=== PATIENT | male | born 1975 | race American Indian/Alaskan Native ===

== ENCOUNTER 2019-07-04 09:24 | Inpatient (IN) | payer OTHER ==
[2019-07-04] MEDS ORDERED: ASPIRIN PO ONE (10:25)
[2019-07-04 10:52] LABS: Basophils # (Auto) 0.1 K/mm3 (0.0-0.1); Basophils % (Auto) 0.7 % (0.0-1.8); Eosinophils # (Auto) 0.1 K/mm3 (0.0-0.4); Eosinophils % (Auto) 1.1 % (0.0-4.3); Hematocrit 42.6 % (35.5-45.6); Hemoglobin 13.8 gm/dl (11.8-15.2); Lymphocytes # (Auto) 1.5 K/mm3 (1.2-5.4); Lymphocytes % (Auto) 19.2 % (13.4-35.0); Mean Corpuscular HGB Conc 32 % (32-34); Mean Corpuscular Volume 83 fl (84-94); Monocytes # (Auto) 0.6 K/mm3 (0.0-0.8); Monocytes % (Auto) 7.6 % (0.0-7.3); Platelet Count 337 K/mm3 (140-440); Red Blood Count 5.12 M/mm3 (3.65-5.03); Red Cell Distribution Width 16.5 % (13.2-15.2)
--- NOTE | 2019-07-04 11:01 | XRay Report ---
CHEST 1 VIEW INDICATION: Chest Pain. COMPARISON: None FINDINGS: Support devices: None. Heart: Mild cardiomegaly Lungs/Pleura: Moderate pulmonary congestion. No infiltrate, large pleural effusion or pneumothorax. Additional findings: None. IMPRESSION: Cardiomegaly and pulmonary venous congestion. Signer Name: Eldon Avina Jr, MD Signed: 07/04/2019 10:57 AM Workstation Name: [id number]
--- NOTE | 2019-07-04 11:02 | Emergency Department Report ---
ED Shortness of Breath HPI - General Chief Complaint: Chest Pain Stated Complaint: CHEST TIGHT/SOB Time Seen by Provider: 07/04/19 10:30 Source: patient Mode of arrival: Ambulatory Limitations: No Limitations - History of Present Illness Initial Comments: 43-year-old male patient with history of diabetes presents with complaints of shortness of breath 2 weeks worsening this morning with chest tightness. He denies history of DVT/PE/CA/CVA, recent long travel, family history of heart disease. He admits to bilateral lower leg swelling and swelling in his abdomen. Denies history of heart failure. States pain is a 7 out of 10 in severity and feels like his chest is very tight. + Smoker, denies COPD or asthma history MD Complaint: shortness of breath -: Gradual Pain Scale: 7 Quality: other Improves With: oxygen Worsens With: lying flat Associated Symptoms: chest pain - Related Data Home Medications Medication Instructions Recorded Confirmed Last Taken No Known Home Medications [No 07/04/19 07/04/19 Unknown Reported Home Medications] Allergies Allergy/AdvReac Type Severity Reaction Status Date / Time No Known Allergies Allergy Verified 07/04/19 10:35 ED Review of Systems ROS: Stated complaint: CHEST TIGHT/SOB Other details as noted in HPI Constitutional: denies: chills, diaphoresis, fever ENT: denies: throat pain Respiratory: shortness of breath, SOB with exertion, SOB at rest. denies: cough, wheezing Endocrine: denies: excessive sweating Gastrointestinal: denies: abdominal pain, nausea, vomiting, diarrhea, constipation Musculoskeletal: as per HPI Skin: lesions, change in color. denies: rash Neurological: denies: headache, weakness, numbness, paresthesias Psychiatric: denies: anxiety, depression Hematological/Lymphatic: denies: easy bleeding, easy bruising ED Past Medical Hx - Past Medical History Previous Medical History?: Yes Hx Diabetes: Yes - Surgical History Past Surgical History?: Yes Additional Surgical History: Left hip surgery - Social History Smoking Status: Current Every Day Smoker Substance Use Type: Marijuana, Methamphetamines - Medications Home Medications: Home Medications Medication Instructions Recorded Confirmed Last Taken Type No Known Home Medications [No 07/04/19 07/04/19 Unknown History Reported Home Medications] ED Physical Exam - General Limitations: No Limitations General appearance: alert, in no apparent distress - Head Head exam: Present: atraumatic, normocephalic - Eye Eye exam: Present: normal appearance - ENT ENT exam: Present: mucous membranes moist - Neck Neck exam: Present: normal inspection - Respiratory Respiratory exam: Present: decreased breath sounds. Absent: respiratory distress, wheezes, rales, rhonchi - Cardiovascular Cardiovascular Exam: Present: normal rhythm, tachycardia, normal heart sounds. Absent: systolic murmur, diastolic murmur, rubs, gallop - GI/Abdominal GI/Abdominal exam: Present: soft, distended, normal bowel sounds. Absent: tenderness, guarding, rebound, rigid - Rectal Rectal exam: Present: deferred - Extremities Exam Extremities exam: Present: pedal edema (3+ pitting edema bilaterally in LEs with superficial lesions noted to LLE), calf tenderness - Back Exam Back exam: Present: full ROM - Neurological Exam Neurological exam: Present: alert, oriented X3 - Psychiatric Psychiatric exam: Present: normal affect, normal mood - Skin Skin exam: Present: warm, dry, intact, normal color. Absent: rash ED Course Vital Signs 07/04/19 07/04/19 07/04/19 09:28 10:50 11:14 Temperature 97.6 F 98.1 F Pulse Rate 118 H 115 H Respiratory 19 19 20 Rate Blood Pressure 150/105 Blood Pressure 147/114 [Left] O2 Sat by Pulse 97 100 96 Oximetry 07/04/19 07/04/19 07/04/19 12:30 14:22 15:35 Temperature 98.1 F Pulse Rate 113 H Respiratory 16 18 Rate Blood Pressure 152/101 Blood Pressure 149/113 138/99 [Left] O2 Sat by Pulse 100 Oximetry - Reevaluation(s) Reevaluation #1: 07/04/19 11:03 Distention noted on exam with mild tachycardia, heart rate around 115 bpm. CTA chest to BNP, and venous ultrasound added. 07/04/19 11:04 CBC without acute findings. Reevaluation #2: 07/04/19 12:30 Ultrasound negative for DVT bilaterally in lower extremities Reevaluation #3: 07/04/19 13:[address] Esparza, radiologiststates CTA of chest shows a right middle lobe embolus and CHF. ED Medical Decision Making - Lab Data Result diagrams: 07/05/19 06:07 07/05/19 06:07 Lab Results 07/04/19 07/04/19 07/04/19 Range/Units 10:37 10:37 10:37 WBC 7.9 (4.5-11.0) K/mm3 RBC 5.12 H (3.65-5.03) M/mm3 Hgb 13.8 (11.8-15.2) gm/dl Hct 42.6 (35.5-45.6) % MCV 83 L (84-94) fl MCH 27 L (28-32) pg MCHC 32 (32-34) % RDW 16.5 H (13.2-15.2) % Plt Count 337 (140-440) K/mm3 Lymph % (Auto) 19.2 (13.4-35.0) % [place] % (Auto) 7.6 H (0.0-7.3) % Eos % (Auto) 1.1 (0.0-4.3) % Baso % (Auto) 0.7 (0.0-1.8) % Lymph # 1.5 (1.2-5.4) K/mm3 [place] # 0.6 (0.0-0.8) K/mm3 Eos # 0.1 (0.0-0.4) K/mm3 Baso # 0.1 (0.0-0.1) K/mm3 Seg Neutrophils % 71.4 H (40.0-70.0) % Seg Neutrophils # 5.6 (1.8-7.7) K/mm3 Sodium 139 (137-145) mmol/L Potassium 4.1 (3.6-5.0) mmol/L Chloride 103.9 (98-107) mmol/L Carbon Dioxide 21 L (22-30) mmol/L Anion Gap 18 mmol/L BUN 14 (9-20) mg/dL Creatinine 0.8 (0.8-1.5) mg/dL Estimated GFR > 60 ml/min BUN/Creatinine Ratio 18 % Glucose 165 H (75-100) mg/dL Calcium 8.1 L (8.4-10.2) mg/dL Total Bilirubin 0.60 (0.1-1.2) mg/dL Direct Bilirubin 0.2 (0-0.2) mg/dL Indirect Bilirubin 0.4 mg/dL AST 18 (5-40) units/L ALT 20 (7-56) units/L Alkaline Phosphatase 90 (35-129) units/L Troponin T < 0.010 (0.00-0.029) ng/mL NT-Pro-B Natriuret Pep 2361 H (0-450) pg/mL Total Protein 6.9 (6.3-8.2) g/dL Albumin 3.7 L (3.9-5) g/dL Albumin/Globulin Ratio 1.2 % - Radiology Data Radiology results: report reviewed Bilateral Doppler US of LEs negative for DVT CHEST 1 VIEW INDICATION: Chest Pain. COMPARISON: None FINDINGS: Support devices: None. Heart: Mild cardiomegaly Lungs/Pleura: Moderate pulmonary congestion. No infiltrate, large pleural effusion or pneumothorax. Additional findings: None. IMPRESSION: Cardiomegaly and pulmonary venous congestion. CT angio chest INDICATION / CLINICAL INFORMATION: chest pain ,SOB, tachycardia. TECHNIQUE: Axial CT images were obtained after injection of Omnipaque 350, 100 cc IV contrast using CTA protocol. 3 plane MIP / 3D reconstructions were produced. All CT scans at this location are performed using CT dose reduction for ALARA by means of automated exposure control. COMPARISON: Chest x-ray earlier the same day. FINDINGS: Evaluation is limited by significant respiratory artifact. The lungs contain small/moderate effusions and moderate bilateral edema. A few small areas of slightly more localized parenchymal change is noted. Negative for mediastinal mass or adenopathy. There is reflux into the IVC and hepatic veins typical of increased central venous pressure. Negative for large central pulmonary embolus. The smaller pulmonary arteries are not well evaluated. A localized embolus is seen at the right middle lobe medially (series #3, images [id number]). A pericardial effusion is small. IMPRESSION: 1. Small right middle lobe pulmonary embolus. Findings detailed limited by respiratory motion. 2. Changes of congestive failure including pleural fluid and edema. 3. Small pericardial effusion. 4. Increased central venous pressure with reflux into the IVC and hepatic veins. - Medical Decision Making Chin here with shortness of breath and chest pain. Workup shows new onset heart failure with right middle lobe embolus. Discussed patient with Dr. Cooper, patient to be admitted for further treatment and evaluation. Critical care attestation.: If time is entered above; I have spent that time in minutes in the direct care of this critically ill patient, excluding procedure time. ED Disposition Clinical Impression: New onset of congestive heart failure Pulmonary embolism Qualifiers: Pulmonary embolism type: single subsegmental (without acute cor pulmonale) Qualified Code(s): I26.93 - Single subsegmental pulmonary embolism without acute cor pulmonale Disposition: DC-09 OP ADMIT IP TO THIS HOSP Is pt being admited?: Yes Condition: Stable
[2019-07-04 11:13] LABS: BUN/Creatinine Ratio 18; Blood Urea Nitrogen 14 mg/dL (9-20); Calcium 8.1 mg/dL (8.4-10.2); Hemolysis Index 7
[2019-07-04 11:40] LABS: Albumin 3.7 g/dL (3.9-5); Bilirubin,Direct 0.2 mg/dL (0-0.2)
--- NOTE | 2019-07-04 12:18 | Vascular Lab Report ---
DUPLEX DOPPLER LOWER EXTREMITY VEINS, BILATERAL INDICATION: Bilateral lower extremity pain and swelling for 2 days. TECHNIQUE: Duplex doppler imaging was performed through the veins of both lower extremities using ve nous compression and other maneuvers. COMPARISON: No relevant prior imaging study available. FINDINGS: Right Common femoral vein: Negative. Right Superficial femoral vein: Negative. Right Popliteal vein: Negative. Right Calf veins: Negative. Left Common femoral vein: Negative. Left Superficial femoral vein: Negative. Left Popliteal vein: Negative. Left Calf veins: Negative. Additional findings: None.. IMPRESSION: No sonographic evidence for DVT in either lower extremity. Signer Name: Eldon Avina Jr, MD Signed: 07/04/2019 12:14 PM Workstation Name: [id number]
--- NOTE | 2019-07-04 13:45 | Cat Scan Report ---
CT angio chest INDICATION / CLINICAL INFORMATION: chest pain ,SOB, tachycardia. TECHNIQUE: Axial CT images were obtained after injection of Omnipaque 350, 100 cc IV contrast using CTA protocol . 3 plane MIP / 3D reconstructions were produced. All CT scans at this location are performed using C T dose reduction for ALARA by means of automated exposure control. COMPARISON: Chest x-ray earlier the same day. FINDINGS: Evaluation is limited by significant respiratory artifact. The lungs contain small/moderate effusions and moderate bilateral edema. A few small areas of slightly more localized parenchymal change is not ed. Negative for mediastinal mass or adenopathy. There is reflux into the IVC and hepatic veins typical o f increased central venous pressure. Negative for large central pulmonary embolus. The smaller pulmonary arteries are not well evaluated. A localized embolus is seen at the right middle lobe medially (series #3, images [id number]). A pericardial effusion is small. IMPRESSION: 1. Small right middle lobe pulmonary embolus. Findings detailed limited by respiratory motion. 2. Changes of congestive failure including pleural fluid and edema. 3. Small pericardial effusion. 4. Increased central venous pressure with reflux into the IVC and hepatic veins. CRITICAL RESULT: Time of Discovery: 12:35 PM Time of Communication: 12:38 PM Licensed Practitioner Receiving Report: December [place] Read Back Performed: Yes. Signer Name: Baldev Esparza MD Signed: 07/04/2019 1:41 PM Workstation Name: [id number]
[2019-07-04] MEDS ORDERED: ZOFRAN IV PRN (14:02)
[2019-07-04] MEDS ORDERED: SODIUM CHLORIDE FLUSH SYRINGE 10 ML IV PRN (14:02)
--- NOTE | 2019-07-04 14:05 | History and Physical Report ---
History of Present Illness Chief complaint: My chest feels tight, and my ankles are swollen History of present illness: 43 YO Male with Obesity, Polysubstance Abuse presents to ED for evaluation. Pt states that he has experienced shortness of breath over the past 2 weeks, with progressively worsening symptoms over the past 3 days. Pt also reports "chest tightness" and "feels like I cant catch my breath". Pt acknowledges decreased exercise tolerance, chest discomfort with deep breathing, Orthopnea/PND, and subjective weight gain over the past 1 week. Pt transported to [facility] via private vehicle. Pt seen and evaluated in ED and found to have symptoms consistent with CHF Decompensation, New Onset, Acute Respiratory Failure, Obesity Hypoventilation, as well as RML Pulmonary Embolism. Pt initiated on CHF protocol in ED as well as therapeutic anticoagulation. Cardiology consulted in ED. No prior admission for review. No medication listed for reconciliation at time of admission. Pt is alert and responsive and is able to protect his airway. Past History Past Medical History: other (see hpi) Past Surgical History: Other (Left hip surgery) Social history: single, smoking, other (polysubstance abuse) Family history: no significant family history (reviewed) Medications and Allergies Allergies Allergy/AdvReac Type Severity Reaction Status Date / Time No Known Allergies Allergy Verified 07/04/19 10:35 Active Meds: Active Medications Acetaminophen (Tylenol) 650 mg PO Q4H PRN PRN Reason: Pain MILD(1-3)/Fever >100.5/PEDROZA Apixaban (Eliquis) 10 mg PO Q12HR MARLENA; Protocol Ondansetron HCl (Zofran) 4 mg IV Q8H PRN PRN Reason: Nausea And Vomiting Sodium Chloride (Sodium Chloride Flush Syringe 10 Ml) 10 ml IV BID MARLENA Sodium Chloride (Sodium Chloride Flush Syringe 10 Ml) 10 ml IV PRN PRN PRN Reason: LINE FLUSH Review of Systems Constitutional: no weight loss, no weight gain, no fever, no chills Ears, nose, mouth and throat: no ear pain, no ear discharge, no tinnitis, no decreased hearing, no nose pain, no nasal congestion Cardiovascular: orthopnea, edema, shortness of breath, dyspnea on exertion, paroxysmal nocturnal dyspnea, decreased exercise tolerance, no rapid/irregular heart beat Respiratory: no cough, no cough with sputum, no excessive sputum, no hemoptysis Gastrointestinal: no nausea, no vomiting, no diarrhea, no constipation Genitourinary Male: no hematuria, no flank pain, no discharge, no urinary frequency, no urinary hesitancy Rectal: no pain, no incontinence, no bleeding Musculoskeletal: no neck stiffness, no neck pain, no shooting arm pain, no arm numbness/tingling Integumentary: no rash, no pruritis, no redness, no sores, no wounds Neurological: no transient paralysis, no paralysis, no weakness, no parathesias, no numbness, no tingling Psychiatric: no anxiety, no memory loss, no change in sleep habits, no sleep disturbances, no insomnia, no hypersomnia Endocrine: no cold intolerance, no heat intolerance, no polyphagia, no excessive thirst, no polydipsia, no polyuria Hematologic/Lymphatic: no easy bruising, no easy bleeding, no lymphadenopathy, no lymphedema Allergic/Immunologic: no urticaria, no allergic rhinitis, no persistent infections, no anaphylaxis Exam - Constitutional Vitals: Temp Pulse Resp BP Pulse Ox 98.1 F 115 H 20 149/113 96 07/04/19 10:50 07/04/19 10:50 07/04/19 11:14 07/04/19 12:30 07/04/19 11:14 General appearance: Present: mild distress - EENT Eyes: Present: PERRL ENT: hearing intact, clear oral mucosa - Neck Neck: Present: supple, normal ROM - Respiratory Respiratory effort: normal Respiratory: bilateral: diminished - Cardiovascular Heart Sounds: Present: S1 & S2. Absent: rub, click - Extremities Extremities: pulses symmetrical Extremity abnormal: edema Peripheral Pulses: within normal limits - Abdominal General gastrointestinal: Present: soft, non-tender, non-distended, normal bowel sounds Male genitourinary: Present: normal - Integumentary Integumentary: Present: clear, warm, dry - Musculoskeletal Musculoskeletal: generalized weakness - Psychiatric Psychiatric: appropriate mood/affect, intact judgment & insight - Neurologic Neurologic: CNII-XII intact, moves all extremities, no gait normal Results - Labs CBC & Chem 7: 07/04/19 10:37 07/04/19 10:37 Labs: Abnormal lab results 07/04/19 07/04/19 07/04/19 Range/Units 10:37 10:37 10:37 RBC 5.12 H (3.65-5.03) M/mm3 MCV 83 L (84-94) fl MCH 27 L (28-32) pg RDW 16.5 H (13.2-15.2) % [place] % (Auto) 7.6 H (0.0-7.3) % Seg Neutrophils % 71.4 H (40.0-70.0) % Carbon Dioxide 21 L (22-30) mmol/L Glucose 165 H (75-100) mg/dL Calcium 8.1 L (8.4-10.2) mg/dL NT-Pro-B Natriuret Pep 2361 H (0-450) pg/mL Albumin 3.7 L (3.9-5) g/dL Assessment and Plan - Patient Problems (1) CHF (congestive heart failure) Current Visit: Yes Status: Acute Qualifiers: Heart failure chronicity: acute Plan to address problem: Admit to telemetry, Echo, cardiology consulted, strict I/O, daily weight, bnp, d dimer, supplemental oxygen, pulse oximetry, chest x ray, diuresis, afterload reduction, thyroid panel, magnesium level (2) Respiratory failure Current Visit: Yes Status: Acute Qualifiers: Chronicity: acute on chronic Plan to address problem: Supplemental oxygen, chest x ray, CTA chest, pulse oximetry, NIPPV as clinically indicated (3) Obesity hypoventilation syndrome Current Visit: Yes Status: Acute Plan to address problem: supplemental oxygen, nebulizer therapy, pulmonary toilet, NIPPV as clinically indicated. balanced diet, increased physical activity at discharge. (4) Pulmonary embolism on right Current Visit: Yes Status: Acute Plan to address problem: Therapeutic anticoagulation, hypercoagulabe profile, supportive care. (5) Nicotine dependence Current Visit: Yes Status: Acute Qualifiers: Substance use status: in withdrawal Plan to address problem: smoking cessation +10min, supportive care. (6) Polysubstance abuse Current Visit: Yes Status: Acute Plan to address problem: Outpatient F/U care, (7) DVT prophylaxis Current Visit: Yes Status: Acute Plan to address problem: SCD to BLE while in bed, continue therapeutic anticoagulation.
[2019-07-04] MEDS: ELIQUIS PO SCH ×2 (14:21→21:42)
[2019-07-04] MEDS: LASIX IV SCH (17:21)
[2019-07-04] MEDS ORDERED: LASIX PO SCH (18:00)
[2019-07-04 18:06] LABS: Free T4 (Free Thyroxine) 1.21 ng/dL (0.76-1.46)
[2019-07-04 18:09] LABS: Benzodiazepines Screen,Urine PRESUMPTIVE NEGATIVE; Cannabinoid Screen,Urine PRESUMPTIVE NEGATIVE; Cocaine Screen,Urine PRESUMPTIVE NEGATIVE; Methadone Screen,Urine PRESUMPTIVE NEGATIVE; Opiate Screen,Urine PRESUMPTIVE NEGATIVE
[2019-07-04 18:38] LABS: Amphetamine Screen,Urine PRESUMPTIVE POSITIVE
[2019-07-04 20:20] LABS: INR 1.26 (0.87-1.13)
[2019-07-04 20:21] LABS: Partial Thromboplastin Time 29.8 Sec. (24.2-36.6)
[2019-07-04] MEDS: SODIUM CHLORIDE FLUSH SYRINGE 10 ML IV SCH (21:42)
[2019-07-05] MEDS: LASIX IV SCH ×2 (05:51→17:42)
[2019-07-05 06:25] LABS: Basophils # (Auto) 0.1 K/mm3 (0.0-0.1); Basophils % (Auto) 1.1 % (0.0-1.8); Eosinophils # (Auto) 0.2 K/mm3 (0.0-0.4); Eosinophils % (Auto) 2.7 % (0.0-4.3); Hematocrit 42.6 % (35.5-45.6); Hemoglobin 13.8 gm/dl (11.8-15.2); Lymphocytes # (Auto) 1.5 K/mm3 (1.2-5.4); Lymphocytes % (Auto) 19.8 % (13.4-35.0); Mean Corpuscular HGB Conc 32 % (32-34); Mean Corpuscular Volume 83 fl (84-94); Monocytes # (Auto) 0.6 K/mm3 (0.0-0.8); Monocytes % (Auto) 8.7 % (0.0-7.3); Platelet Count 339 K/mm3 (140-440); Red Blood Count 5.15 M/mm3 (3.65-5.03); Red Cell Distribution Width 16.5 % (13.2-15.2)
[2019-07-05 06:51] LABS: Alanine Aminotransferase 19 units/L (7-56); Albumin 3.6 g/dL (3.9-5); BUN/Creatinine Ratio 18; Blood Urea Nitrogen 14 mg/dL (9-20); Calcium 7.8 mg/dL (8.4-10.2); Hemolysis Index 3
[2019-07-05] MEDS: SODIUM CHLORIDE FLUSH SYRINGE 10 ML IV SCH ×2 (09:09→22:31)
[2019-07-05] MEDS: ELIQUIS PO SCH (09:09)
--- NOTE | 2019-07-05 12:29 | Progress Note ---
Assessment and Plan Assessment and plan: Acute Congestive heart failure Admited to telemetry, Echo, cardiology consulted, strict I/O, daily weight, bnp, d dimer, supplemental oxygen, pulse oximetry, chest x ray, diuresis, afterload reduction, thyroid panel, magnesium level Acute Respiratory failure Supplemental oxygen, chest x ray, CTA chest, pulse oximetry, NIPPV as clinically indicated Obesity hypoventilation syndrome supplemental oxygen, nebulizer therapy, pulmonary toilet, NIPPV as clinically indicated. balanced diet, increased physical activity at discharge. Pulmonary embolism on right Therapeutic anticoagulation, hypercoagulabe profile, supportive care. Started on Eliquis consult Hematology Nicotine dependence smoking cessation +10min, supportive care. Polysubstance abuse Outpatient F/U care, DVT prophylaxis SCD to BLE while in bed, continue therapeutic anticoagulation. History Interval history: Chest pain shortness of breath Hospitalist Physical - Physical exam Narrative exam: Gen: Not in acute distress, lying in bed, HEENT: Normocephalic, atraumatic Neck: supple, no JVD Heart: S1 and S2 reg, no murmurs, rubs or gallop Lungs: Clear to auscultation, no rhonchi, no wheeze Abd: soft, non tender, non distended, normal BS, Ext: Bilateral lower ext edema, ulcer left leg, no clubbing, no cyanosis Neuro: Awake, alert, oriented X 3, no focal neurological signs - Constitutional Vitals: Temp Pulse Resp BP Pulse Ox 98.1 F 109 H 18 133/89 97 07/05/19 11:17 07/05/19 11:17 07/05/19 11:17 07/05/19 11:17 07/05/19 11:17 Results - Labs CBC & Chem 7: 07/05/19 06:07 07/05/19 06:07 Labs: Laboratory Last Values WBC 7.4 K/mm3 (4.5-11.0) 07/05/19 06:07 RBC 5.15 M/mm3 (3.65-5.03) H 07/05/19 06:07 Hgb 13.8 gm/dl (11.8-15.2) 07/05/19 06:07 Hct 42.6 % (35.5-45.6) 07/05/19 06:07 MCV 83 fl (84-94) L 07/05/19 06:07 MCH 27 pg (28-32) L 07/05/19 06:07 MCHC 32 % (32-34) 07/05/19 06:07 RDW 16.5 % (13.2-15.2) H 07/05/19 06:07 Plt Count 339 K/mm3 (140-440) 07/05/19 06:07 Lymph % (Auto) 19.8 % (13.4-35.0) 07/05/19 06:07 [place] % (Auto) 8.7 % (0.0-7.3) H 07/05/19 06:07 Eos % (Auto) 2.7 % (0.0-4.3) 07/05/19 06:07 Baso % (Auto) 1.1 % (0.0-1.8) 07/05/19 06:07 Lymph # 1.5 K/mm3 (1.2-5.4) 07/05/19 06:07 [place] # 0.6 K/mm3 (0.0-0.8) 07/05/19 06:07 Eos # 0.2 K/mm3 (0.0-0.4) 07/05/19 06:07 Baso # 0.1 K/mm3 (0.0-0.1) 07/05/19 06:07 Seg Neutrophils % 67.7 % (40.0-70.0) 07/05/19 06:07 Seg Neutrophils # 5.0 K/mm3 (1.8-7.7) 07/05/19 06:07 PT 15.5 Sec. (12.2-14.9) H 07/04/19 16:44 INR 1.26 (0.87-1.13) H 07/04/19 16:44 APTT 29.8 Sec. (24.2-36.6) 07/04/19 16:44 POC ABG pH 7.424 (7.35-7.45) 07/04/19 15:02 POC ABG pCO2 40.5 (35-45) 07/04/19 15:02 POC ABG pO2 128 (80-105) H 07/04/19 15:02 POC ABG HCO3 26.5 (22-26 mml/L) 07/04/19 15:02 POC ABG Total CO2 28 (23-27mmol/L) 07/04/19 15:02 POC ABG O2 Sat 99 07/04/19 15:02 POC ABG Base Excess 2 ((-2) - (+3)mmol/L) 07/04/19 15:02 FiO2 36 % 07/04/19 15:02 Sodium 141 mmol/L (137-145) 07/05/19 06:07 Potassium 4.1 mmol/L (3.6-5.0) 07/05/19 06:07 Chloride 102.4 mmol/L (98-107) 07/05/19 06:07 Carbon Dioxide 24 mmol/L (22-30) 07/05/19 06:07 Anion Gap 19 mmol/L 07/05/19 06:07 BUN 14 mg/dL (9-20) 07/05/19 06:07 Creatinine 0.8 mg/dL (0.8-1.5) 07/05/19 06:07 Estimated GFR > 60 ml/min 07/05/19 06:07 BUN/Creatinine Ratio 18 % 07/05/19 06:07 Glucose 206 mg/dL (75-100) H 07/05/19 06:07 Calcium 7.8 mg/dL (8.4-10.2) L 07/05/19 06:07 Magnesium 2.30 mg/dL (1.7-2.3) 07/04/19 16:44 Total Bilirubin 0.60 mg/dL (0.1-1.2) 07/05/19 06:07 Direct Bilirubin 0.2 mg/dL (0-0.2) 07/04/19 10:37 Indirect Bilirubin 0.4 mg/dL 07/04/19 10:37 AST 15 units/L (5-40) 07/05/19 06:07 ALT 19 units/L (7-56) 07/05/19 06:07 Alkaline Phosphatase 88 units/L (35-129) 07/05/19 06:07 Troponin T < 0.010 ng/mL (0.00-0.029) 07/04/19 16:44 NT-Pro-B Natriuret Pep 2361 pg/mL (0-450) H 07/04/19 10:37 Total Protein 6.7 g/dL (6.3-8.2) 07/05/19 06:07 Albumin 3.6 g/dL (3.9-5) L 07/05/19 06:07 Albumin/Globulin Ratio 1.2 % 07/05/19 06:07 TSH 2.270 mlU/mL (0.270-4.200) 07/04/19 16:44 Free T4 1.21 ng/dL (0.76-1.46) 07/04/19 16:44 Urine Opiates Screen Presumptive negative 07/04/19 17:35 Urine Methadone Screen Presumptive negative 07/04/19 17:35 Ur Barbiturates Screen Presumptive negative 07/04/19 17:35 Ur Phencyclidine Scrn Presumptive negative 07/04/19 17:35 Ur Amphetamines Screen Presumptive positive 07/04/19 17:35 U Benzodiazepines Scrn Presumptive negative 07/04/19 17:35 Urine Cocaine Screen Presumptive negative 07/04/19 17:35 U Marijuana (THC) Screen Presumptive negative 07/04/19 17:35 Drugs of Abuse Note Disclamer 07/04/19 17:35 Active Medications - Current Medications Current Medications: Generic Name Dose Route Start Last Admin Trade Name Freq PRN Reason Stop Dose Admin Acetaminophen 650 mg 07/04/19 14:02 Tylenol PO Q4H PRN Pain MILD(1-3)/Fever >100.5/PEDROZA Apixaban 10 mg 07/04/19 14:04 07/05/19 09:09 Eliquis PO 07/10/19 22:01 10 mg Q12HR MARLENA Administration Protocol Apixaban 5 mg 07/11/19 10:00 Eliquis PO Q12HR MARLENA Protocol Furosemide 40 mg 07/04/19 18:00 07/05/19 05:51 Lasix IV 40 mg 0600,1800 MARLENA Administration Ondansetron HCl 4 mg 07/04/19 14:02 Zofran IV Q8H PRN Nausea And Vomiting Sodium Chloride 10 ml 07/04/19 22:00 07/05/19 09:09 Sodium Chloride Flush Syringe 10 Ml IV 10 ml BID MARLENA Administration Sodium Chloride 10 ml 07/04/19 14:02 07/05/19 05:53 Sodium Chloride Flush Syringe 10 Ml IV 10 ml PRN PRN Administration LINE FLUSH
--- NOTE | 2019-07-05 12:43 | Consultation ---
History of Present Illness Consult date: 07/05/19 Requesting physician: ALEXANDRA HARDEN Consult reason: congestive heart failure, other (PE) History of present illness: The pt is a 43 YO male with a history of HTN, diabetes (reportedly diet controlled), obesity, polysubstance abuse, current tobacco smoker, currently homeless. He is previously unknown to our practice. He presented with c/o progressively worsening SOB, WINTER and BLE swelling for the past 2 weeks. Pt also reports "chest tightness" with exertion. Pt denies any palpitations, n/v, diaphoresis, dizziness or syncope. He denies any known prior cardiac issues. Chest CTA shows small right middle lobe PE, small/mod effusions and mod bilateral pulmonary edema. Echo shows EF 10-15%, abnormal diastolic function, moderate pericardial effusion with no evidence of tamponade, trace MR, RV systolic function mildly reduced, RVSP 45mmHg. Past History Past Medical History: diabetes, hypertension Past Surgical History: Other (Left hip surgery) Social history: single, smoking, other (polysubstance abuse). denies: alcohol abuse Family history: no significant family history (reviewed) Medications and Allergies Allergies Allergy/AdvReac Type Severity Reaction Status Date / Time No Known Allergies Allergy Verified 07/04/19 10:35 Home Medications Medication Instructions Recorded Confirmed Last Taken Type No Known Home Medications [No 07/04/19 07/04/19 Unknown History Reported Home Medications] Active Meds: Active Medications Acetaminophen (Tylenol) 650 mg PO Q4H PRN PRN Reason: Pain MILD(1-3)/Fever >100.5/PEDROZA Apixaban (Eliquis) 10 mg PO Q12HR MARLENA; Protocol Stop: 07/10/19 22:01 Last Admin: 07/05/19 09:09 Dose: 10 mg Documented by: Apixaban (Eliquis) 5 mg PO Q12HR MARLENA; Protocol Furosemide (Lasix) 40 mg IV 0600,1800 [facility] Last Admin: 07/05/19 05:51 Dose: 40 mg Documented by: Ondansetron HCl (Zofran) 4 mg IV Q8H PRN PRN Reason: Nausea And Vomiting Sodium Chloride (Sodium Chloride Flush Syringe 10 Ml) 10 ml IV BID MARLENA Last Admin: 07/05/19 09:09 Dose: 10 ml Documented by: Sodium Chloride (Sodium Chloride Flush Syringe 10 Ml) 10 ml IV PRN PRN PRN Reason: LINE FLUSH Last Admin: 07/05/19 05:53 Dose: 10 ml Documented by: Review of Systems Constitutional: weight gain, no fever, no chills, no sweats Ears, nose, mouth and throat: no ear pain, no nose pain, no sinus pressure, no sinus pain Cardiovascular: chest pain, edema, shortness of breath, dyspnea on exertion, high blood pressure, leg edema, decreased exercise tolerance, no orthopnea, no palpitations, no rapid/irregular heart beat, no syncope, no lightheadedness Respiratory: shortness of breath, dyspnea on exertion, no cough, no congestion, no wheezing, no pain on inspiration Gastrointestinal: no abdominal pain, no nausea, no vomiting, no diarrhea, no constipation, no change in bowel habits Genitourinary Male: no dysuria, no hematuria, no flank pain, no discharge, no urinary frequency, no urinary hesitancy Musculoskeletal: no neck stiffness, no neck pain, no shooting arm pain, no arm numbness/tingling, no low back pain, no shooting leg pain Integumentary: other (BLE blistering), no rash, no pruritis Neurological: no head injury, no paralysis, no weakness, no parathesias, no numbness, no tingling, no seizures, no syncope Psychiatric: no anxiety Endocrine: no cold intolerance, no heat intolerance Hematologic/Lymphatic: no easy bruising, no easy bleeding Allergic/Immunologic: no urticaria, no wheezing Physical Examination Vital Signs Temp Pulse Resp BP Pulse Ox 97.6 F 118 H 19 150/105 97 07/04/19 09:28 07/04/19 09:28 07/04/19 09:28 07/04/19 09:28 07/04/19 09:28 General appearance: no acute distress HEENT: Positive: PERRL, Normocephaly, Mucus Membranes Moist Neck: Positive: neck supple, trachea midline Cardiac: Positive: Regular Rhythm, S1/S2, S3, Tachycardia Lungs: Positive: Decreased Breath Sounds, Rales (bibasilar) Neuro: Positive: Grossly Intact Abdomen: Negative: Tender Skin: Positive: Other (BLE blistering). Negative: Rash Musculoskeletal: No Pain Extremities: Present: +3 Edema (BLE) Results 07/05/19 06:07 07/05/19 06:07 Cardiac Enzymes 07/05/19 Range/Units 06:07 AST 15 (5-40) units/L Coagulation 07/04/19 Range/Units 16:44 PT 15.5 H (12.2-14.9) Sec. INR 1.26 H (0.87-1.13) APTT 29.8 (24.2-36.6) Sec. CBC 07/05/19 Range/Units 06:07 WBC 7.4 (4.5-11.0) K/mm3 RBC 5.15 H (3.65-5.03) M/mm3 Hgb 13.8 (11.8-15.2) gm/dl Hct 42.6 (35.5-45.6) % Plt Count 339 (140-440) K/mm3 Lymph # 1.5 (1.2-5.4) K/mm3 [place] # 0.6 (0.0-0.8) K/mm3 Eos # 0.2 (0.0-0.4) K/mm3 Baso # 0.1 (0.0-0.1) K/mm3 Comprehensive Metabolic Panel 07/05/19 Range/Units 06:07 Sodium 141 (137-145) mmol/L Potassium 4.1 (3.6-5.0) mmol/L Chloride 102.4 (98-107) mmol/L Carbon Dioxide 24 (22-30) mmol/L BUN 14 (9-20) mg/dL Creatinine 0.8 (0.8-1.5) mg/dL Glucose 206 H (75-100) mg/dL Calcium 7.8 L (8.4-10.2) mg/dL AST 15 (5-40) units/L ALT 19 (7-56) units/L Alkaline Phosphatase 88 (35-129) units/L Total Protein 6.7 (6.3-8.2) g/dL Albumin 3.6 L (3.9-5) g/dL - Imaging and Cardiology Echo: report reviewed (Echo shows EF 10-15%, abnormal diastolic function, moderate pericardial effusion with no evidence of tamponade, trace MR, RV systolic function mildly reduced, RVSP 45mmHg. ) EKG: report reviewed, image reviewed EKG interpretations - Telemetry EKG Rhythm: Sinus Rhythm - EKG Sinus rhythms and dysrhythmias: sinus rhythm Assessment and Plan Echo shows EF 10-15%, abnormal diastolic function, moderate pericardial effusion with no evidence of tamponade, trace MR, RV systolic function mildly reduced, RVSP 45mmHg. Initiate GDMT and cont IV diuresis. Will plan for coronary angiography once stabilized (likely Thursday) to r/o ischemic CMP. In consideration of upcoming LHC, will hold Eliquis and initiate full dosage lovenox for systemic AC until following LHC. Will plan to convert back to Eliquis prior to discharge. Pt with apparently ? unprovoked PE - BLE duplex negative for DVT. Hematology has been consulted. The patient has been seen in conjunction with Dr. NIKOLAY Flor who agrees with the assessment and plan of care. - Patient Problems (1) Pulmonary embolism on right Current Visit: Yes Status: Acute (2) Acute HFrEF (heart failure with reduced ejection fraction) Current Visit: Yes Status: Acute (3) Cardiomyopathy Current Visit: Yes Status: Chronic (4) Pericardial effusion Current Visit: Yes Status: Acute (5) Sinus tachycardia Current Visit: Yes Status: Acute (6) HTN (hypertension) Current Visit: Yes Status: Chronic (7) Tobacco use Current Visit: Yes Status: Chronic (8) Polysubstance abuse Current Visit: Yes Status: Chronic
[2019-07-05] MEDS: COREG PO SCH ×2 (17:20→22:30)
[2019-07-05] MEDS: ENOXAPARIN SUB-Q SCH (22:29)
[2019-07-06 05:14] LABS: BUN/Creatinine Ratio 19; Blood Urea Nitrogen 13 mg/dL (9-20); Calcium 8.2 mg/dL (8.4-10.2); Hemolysis Index 6
[2019-07-06] MEDS: LASIX IV SCH ×2 (06:56→17:05)
[2019-07-06] MEDS ORDERED: VASELINE LIP THERAPY TP PRN (08:00)
--- NOTE | 2019-07-06 08:26 | Event Note ---
Date: 07/06/19 [id number]
[2019-07-06] MEDS: SODIUM CHLORIDE FLUSH SYRINGE 10 ML IV SCH ×2 (09:57→21:13)
[2019-07-06] MEDS: ZESTRIL PO SCH (09:57)
[2019-07-06] MEDS: COREG PO SCH ×2 (09:57→21:09)
[2019-07-06] MEDS: ENOXAPARIN SUB-Q SCH ×2 (09:57→21:10)
[2019-07-06] MEDS: ALDACTONE PO SCH (09:57)
--- NOTE | 2019-07-06 10:00 | Consultation ---
REFERRED BY: Nash Romero MD REASON FOR CONSULTATION: Pulmonary embolism. HISTORY OF PRESENT ILLNESS: I saw the patient, a 43-year-old male. He came to the hospital because of 3 weeks of shortness of breath, chest tightness, decreased exercise tolerance, history of weight gain present. He was found to have right middle lobe pulmonary embolism. Anticoagulation was started. I have been asked to evaluate the patient. The patient never had a PE before. No family history of PE. No history of long distance driving or flight. History of smoking present. History of polysubstance abuse present. At this time, no headache, no visual disturbances, no ear discharge, no abdominal pain, no vomiting, no diarrhea, no dysuria, no seizure or syncope. PAST MEDICAL HISTORY: As above. PAST SURGICAL HISTORY: Left hip surgery. SOCIAL HISTORY: Single. History of smoking present. FAMILY HISTORY: Noncontributory. ALLERGIES: None. PHYSICAL EXAMINATION: VITAL SIGNS: Temperature 97, pulse 107, respirations 18, BP 134/96. HEENT: No pallor, no icterus. NECK: No neck lymph nodes. HEART: S1, S2. LUNGS: Clear to auscultation anteriorly. ABDOMEN: Soft, obese. EXTREMITIES: Bilateral pitting pedal edema present. LABORATORY DATA: White cell 7, hemoglobin 13, MCV 83, platelet 339. Potassium 3.7, creatinine 0.7, calcium 8.2, bilirubin 0.6. U-tox, amphetamine positive. RADIOLOGY: CTA chest shows small right middle lobe PE, changes of CHF seen. Leg Doppler, no DVT in both lower extremities. ASSESSMENT AND PLAN: 1. Right middle lobe pulmonary embolism. 2. Radiological congestive heart failure. 3. The patient is on Lovenox 100 mg subcu q. 12 hours. I discussed with the patient regarding anticoagulation, warfarin versus Eliquis versus Xarelto. The patient would need at least 3-6 months of anticoagulation. He is self-pay. He has option of going to [place] for INR management. He can also come to my clinic for followup. I discussed with him regarding quitting smoking as this may have a role. 4. Advised to lose weight. 5. Leg Doppler is negative. 6. Radiology mentioned congestive heart failure, was seen by the Cardiology team. JOB# [id number] RI/NTS
[2019-07-06] MEDS ORDERED: AFLURIA QUAD 2019-2020 (3YR UP) IM ONE (12:00)
--- NOTE | 2019-07-06 12:10 | Progress Note ---
Assessment and Plan Assessment and plan: Acute systolic Congestive heart failure Admited to telemetry, Echo, cardiology following, strict I/O, daily weight, bnp, d dimer, supplemental oxygen, pulse oximetry, chest x ray, diuresis, afterload reduction, thyroid panel, magnesium level EF 10-15%. Life vest recommended AICD to be arranged asoutpatient Acute Respiratory failure Supplemental oxygen, chest x ray, CTA chest, pulse oximetry, NIPPV as clinically indicated Obesity hypoventilation syndrome supplemental oxygen, nebulizer therapy, pulmonary toilet, NIPPV as clinically indicated. balanced diet, increased physical activity at discharge. Pulmonary embolism on right Therapeutic anticoagulation, hypercoagulabe profile, supportive care. Started on Eliquis consult Hematology Discussed with Dr. liang Nicotine dependence smoking cessation +10min, supportive care. Polysubstance abuse Outpatient F/U care, DVT prophylaxis SCD to BLE while in bed, continue therapeutic anticoagulation. History Interval history: Chest pain shortness of breath Hospitalist Physical - Physical exam Narrative exam: Gen: Not in acute distress, lying in bed, HEENT: Normocephalic, atraumatic Neck: supple, no JVD Heart: S1 and S2 reg, no murmurs, rubs or gallop Lungs: Clear to auscultation, no rhonchi, no wheeze Abd: soft, non tender, non distended, normal BS, Ext: Bilateral lower ext edema, ulcer left leg, no clubbing, no cyanosis Neuro: Awake, alert, oriented X 3, no focal neurological signs - Constitutional Vitals: Temp Pulse Resp BP Pulse Ox 98.2 F 109 H 18 105/78 96 07/06/19 11:54 07/06/19 11:54 07/06/19 11:54 07/06/19 11:54 07/06/19 11:54 General appearance: Present: no acute distress Results - Labs CBC & Chem 7: 07/05/19 06:07 07/06/19 04:07 Labs: Laboratory Last Values WBC 7.4 K/mm3 (4.5-11.0) 07/05/19 06:07 RBC 5.15 M/mm3 (3.65-5.03) H 07/05/19 06:07 Hgb 13.8 gm/dl (11.8-15.2) 07/05/19 06:07 Hct 42.6 % (35.5-45.6) 07/05/19 06:07 MCV 83 fl (84-94) L 07/05/19 06:07 MCH 27 pg (28-32) L 07/05/19 06:07 MCHC 32 % (32-34) 07/05/19 06:07 RDW 16.5 % (13.2-15.2) H 07/05/19 06:07 Plt Count 339 K/mm3 (140-440) 07/05/19 06:07 Lymph % (Auto) 19.8 % (13.4-35.0) 07/05/19 06:07 [place] % (Auto) 8.7 % (0.0-7.3) H 07/05/19 06:07 Eos % (Auto) 2.7 % (0.0-4.3) 07/05/19 06:07 Baso % (Auto) 1.1 % (0.0-1.8) 07/05/19 06:07 Lymph # 1.5 K/mm3 (1.2-5.4) 07/05/19 06:07 [place] # 0.6 K/mm3 (0.0-0.8) 07/05/19 06:07 Eos # 0.2 K/mm3 (0.0-0.4) 07/05/19 06:07 Baso # 0.1 K/mm3 (0.0-0.1) 07/05/19 06:07 Seg Neutrophils % 67.7 % (40.0-70.0) 07/05/19 06:07 Seg Neutrophils # 5.0 K/mm3 (1.8-7.7) 07/05/19 06:07 PT 15.5 Sec. (12.2-14.9) H 07/04/19 16:44 INR 1.26 (0.87-1.13) H 07/04/19 16:44 APTT 29.8 Sec. (24.2-36.6) 07/04/19 16:44 POC ABG pH 7.424 (7.35-7.45) 07/04/19 15:02 POC ABG pCO2 40.5 (35-45) 07/04/19 15:02 POC ABG pO2 128 (80-105) H 07/04/19 15:02 POC ABG HCO3 26.5 (22-26 mml/L) 07/04/19 15:02 POC ABG Total CO2 28 (23-27mmol/L) 07/04/19 15:02 POC ABG O2 Sat 99 07/04/19 15:02 POC ABG Base Excess 2 ((-2) - (+3)mmol/L) 07/04/19 15:02 FiO2 36 % 07/04/19 15:02 Sodium 140 mmol/L (137-145) 07/06/19 04:07 Potassium 3.7 mmol/L (3.6-5.0) 07/06/19 04:07 Chloride 102.1 mmol/L (98-107) 07/06/19 04:07 Carbon Dioxide 27 mmol/L (22-30) 07/06/19 04:07 Anion Gap 15 mmol/L 07/06/19 04:07 BUN 13 mg/dL (9-20) 07/06/19 04:07 Creatinine 0.7 mg/dL (0.8-1.5) L 07/06/19 04:07 Estimated GFR > 60 ml/min 07/06/19 04:07 BUN/Creatinine Ratio 19 % 07/06/19 04:07 Glucose 263 mg/dL (75-100) H 07/06/19 04:07 Calcium 8.2 mg/dL (8.4-10.2) L 07/06/19 04:07 Magnesium 2.30 mg/dL (1.7-2.3) 07/04/19 16:44 Total Bilirubin 0.60 mg/dL (0.1-1.2) 07/05/19 06:07 Direct Bilirubin 0.2 mg/dL (0-0.2) 07/04/19 10:37 Indirect Bilirubin 0.4 mg/dL 07/04/19 10:37 AST 15 units/L (5-40) 07/05/19 06:07 ALT 19 units/L (7-56) 07/05/19 06:07 Alkaline Phosphatase 88 units/L (35-129) 07/05/19 06:07 Troponin T < 0.010 ng/mL (0.00-0.029) 07/04/19 16:44 NT-Pro-B Natriuret Pep 2361 pg/mL (0-450) H 07/04/19 10:37 Total Protein 6.7 g/dL (6.3-8.2) 07/05/19 06:07 Albumin 3.6 g/dL (3.9-5) L 07/05/19 06:07 Albumin/Globulin Ratio 1.2 % 07/05/19 06:07 TSH 2.270 mlU/mL (0.270-4.200) 07/04/19 16:44 Free T4 1.21 ng/dL (0.76-1.46) 07/04/19 16:44 Urine Opiates Screen Presumptive negative 07/04/19 17:35 Urine Methadone Screen Presumptive negative 07/04/19 17:35 Ur Barbiturates Screen Presumptive negative 07/04/19 17:35 Ur Phencyclidine Scrn Presumptive negative 07/04/19 17:35 Ur Amphetamines Screen Presumptive positive 07/04/19 17:35 U Benzodiazepines Scrn Presumptive negative 07/04/19 17:35 Urine Cocaine Screen Presumptive negative 07/04/19 17:35 U Marijuana (THC) Screen Presumptive negative 07/04/19 17:35 Drugs of Abuse Note Disclamer 07/04/19 17:35 Active Medications - Current Medications Current Medications: Generic Name Dose Route Start Last Admin Trade Name Freq PRN Reason Stop Dose Admin Acetaminophen 650 mg 07/04/19 14:02 Tylenol PO Q4H PRN Pain MILD(1-3)/Fever >100.5/PEDROZA Carvedilol 6.25 mg 07/05/19 14:00 07/06/19 09:57 Coreg PO 6.25 mg BID MARLENA Administration Enoxaparin Sodium 100 mg 07/05/19 22:00 07/06/19 09:57 Lovenox SUB-Q 100 mg Q12HR MARLENA Administration Furosemide 40 mg 07/04/19 18:00 07/06/19 06:56 Lasix IV 40 mg 0600,1800 MARLENA Administration Hydrophilic Ointment 1 applic 07/06/19 08:00 07/06/19 11:09 Vaseline Lip Therapy TP 1 applic DIRECT PRN Administration Dry Lips Lisinopril 5 mg 07/06/19 10:00 07/06/19 09:57 Zestril PO 5 mg QDAY MARLENA Administration Ondansetron HCl 4 mg 07/04/19 14:02 Zofran IV Q8H PRN Nausea And Vomiting Sodium Chloride 10 ml 07/04/19 22:00 07/06/19 09:57 Sodium Chloride Flush Syringe 10 Ml IV 10 ml BID MARLENA Administration Sodium Chloride 10 ml 07/04/19 14:02 07/05/19 05:53 Sodium Chloride Flush Syringe 10 Ml IV 10 ml PRN PRN Administration LINE FLUSH Spironolactone 12.5 mg 07/06/19 10:00 07/06/19 09:57 Aldactone PO 12.5 mg QDAY MARLENA Administration
--- NOTE | 2019-07-06 13:25 | Progress Note ---
Assessment and Plan Cont GDMT and IV diuresis. Will plan for coronary angiography once stabilized (likely Thursday) to r/o ischemic CMP. In consideration of upcoming LHC, will hold Eliquis and cont full dosage lovenox for systemic AC until following LHC. Will plan to convert back to Eliquis prior to discharge. Pt with apparently ? unprovoked PE - BLE duplex negative for DVT. Hematology is following. Cardiac defibrillator (LifeVest) is recommended at this time in setting of severe CMP and NSVT. Indications, potential risks and benefits of cardiac defibrillator reviewed with pt and he is agreeable to LifeVest. LifeVest ordered. We will plan to evaluate for AICD candidacy as OP. The patient has been seen in conjunction with Dr. NIKOLAY Flor who agrees with the assessment and plan of care. - Patient Problems (1) Pulmonary embolism on right Current Visit: Yes Status: Acute (2) Acute HFrEF (heart failure with reduced ejection fraction) Current Visit: Yes Status: Acute (3) Cardiomyopathy Current Visit: Yes Status: Chronic (4) Pericardial effusion Current Visit: Yes Status: Acute (5) Sinus tachycardia Current Visit: Yes Status: Acute (6) HTN (hypertension) Current Visit: Yes Status: Chronic (7) Tobacco use Current Visit: Yes Status: Chronic (8) Polysubstance abuse Current Visit: Yes Status: Chronic Subjective Date of service: 07/06/19 Principal diagnosis: HF Interval history: pt resting in bed, states he is feeling a little better, BLE edema gradually improving. in SR/ST HR 100s on telemetry, run of NSVT noted on 07/04. Objective Last Vital Signs Temp 98.2 F 07/06/19 11:54 Pulse 109 H 07/06/19 11:54 Resp 18 07/06/19 11:54 BP 105/78 07/06/19 11:54 Pulse Ox 96 07/06/19 11:54 - Physical Examination General: No Apparent Distress HEENT: Positive: PERRL, Normocephaly, Mucus Membranes Moist Neck: Positive: neck supple, trachea midline Cardiac: Positive: Regular Rhythm, S1/S2 Lungs: Positive: Decreased Breath Sounds Neuro: Positive: Grossly Intact Abdomen: Negative: Tender Skin: Positive: Other (BLE blistering). Negative: Rash Musculoskeletal: No Pain Extremities: Present: +3 Edema (BLE) - Labs and Meds Comprehensive Metabolic Panel 07/06/19 Range/Units 04:07 Sodium 140 (137-145) mmol/L Potassium 3.7 (3.6-5.0) mmol/L Chloride 102.1 (98-107) mmol/L Carbon Dioxide 27 (22-30) mmol/L BUN 13 (9-20) mg/dL Creatinine 0.7 L (0.8-1.5) mg/dL Glucose 263 H (75-100) mg/dL Calcium 8.2 L (8.4-10.2) mg/dL - Imaging and Cardiology EKG: report reviewed, image reviewed Echo: report reviewed (Echo shows EF 10-15%, abnormal diastolic function, moderate pericardial effusion with no evidence of tamponade, trace MR, RV systolic function mildly reduced, RVSP 45mmHg. ) - Telemetry EKG Rhythm: Sinus Rhythm - EKG Sinus rhythms and dysrhythmias: sinus rhythm
[2019-07-07] MEDS: LASIX IV SCH ×2 (05:23→18:20)
[2019-07-07 06:20] LABS: BUN/Creatinine Ratio 15; Blood Urea Nitrogen 12 mg/dL (9-20); Calcium 8.6 mg/dL (8.4-10.2); Hemolysis Index 9
--- NOTE | 2019-07-07 06:34 | Hem/Onc Progress Note ---
Assessment and Plan 1. Right middle lobe pulmonary embolism. 2. Radiological congestive heart failure. 3. The patient was on Lovenox 100 mg subcu q. 12 hours. I had discussed with the patient regarding anticoagulation, warfarin versus Eliquis versus Xarelto. The patient would need at least 3-6 months of anticoagulation. He is self-pay. He has option of going to [place] for INR management. He can also come to my clinic for followup. I discussed with him regarding quitting smoking as this may have a role. 4. Advised to lose weight. 5. Leg Doppler is negative. 6. Radiology mentioned congestive heart failure, was seen by the Cardiology team. due cardiac procedure - Patient Problems (1) Pulmonary embolism Current Visit: Yes Status: Acute Qualifiers: Pulmonary embolism type: single subsegmental (without acute cor pulmonale) Qualified Code(s): I26.93 - Single subsegmental pulmonary embolism without acute cor pulmonale Subjective Date of service: 07/07/19 Principal diagnosis: PE Interval history: due cardiac Ix Objective - Exam Narrative Exam: Pain - none now General appearance - awake Performance status limited self care Eyes - no icterus ENT - no thrush LNs cervical not palpable Neck - no LN Respiratory Normal Breath sounds - CTA anteriorly CVS S1 S2 + Extremities no calf tenderness General GI Soft Rectal deferred male - deferred Skin warm Musculoskeletal moves limbs neuro - awake - Constitutional Vitals: Last Vital Signs Temp 97.6 F 07/07/19 03:49 Pulse 105 H 07/07/19 03:49 Resp 19 07/07/19 03:49 BP 116/87 07/07/19 03:49 Pulse Ox 95 07/07/19 03:49 - Labs Lab Results: Laboratory Results - last 24 hr 07/04/19 07/07/19 16:44 04:34 Antithrombin III Ag 76 L Sodium 140 Potassium 3.7 Chloride 99.4 Carbon Dioxide 27 Anion Gap 17 BUN 12 Creatinine 0.8 Estimated GFR > 60 BUN/Creatinine Ratio 15 Glucose 143 H Calcium 8.6 Medications & Allergies - Medications Allergies/Adverse Reactions: Allergies No Known Allergies Allergy (Verified 07/04/19 10:35) Home Medications: Home Medications Medication Instructions Recorded Confirmed Last Taken Type No Known Home Medications [No 07/04/19 07/04/19 Unknown History Reported Home Medications] Active Medications: Generic Name Dose Route Start Last Admin Trade Name Freq PRN Reason Stop Dose Admin Acetaminophen 650 mg 07/04/19 14:02 Tylenol PO Q4H PRN Pain MILD(1-3)/Fever >100.5/PEDROZA Carvedilol 6.25 mg 07/05/19 14:00 07/06/19 21:09 Coreg PO 6.25 mg BID MARLENA Administration Enoxaparin Sodium 100 mg 07/05/19 22:00 07/06/19 21:10 Lovenox SUB-Q 100 mg Q12HR MARLENA Administration Furosemide 40 mg 07/04/19 18:00 07/07/19 05:23 Lasix IV 40 mg 0600,1800 MARLENA Administration Hydrophilic Ointment 1 applic 07/06/19 08:00 07/06/19 11:09 Vaseline Lip Therapy TP 1 applic DIRECT PRN Administration Dry Lips Lisinopril 5 mg 07/06/19 10:00 07/06/19 09:57 Zestril PO 5 mg QDAY MARLENA Administration Ondansetron HCl 4 mg 07/04/19 14:02 Zofran IV Q8H PRN Nausea And Vomiting Sodium Chloride 10 ml 07/04/19 22:00 07/06/19 21:13 Sodium Chloride Flush Syringe 10 Ml IV 10 ml BID MARLENA Administration Sodium Chloride 10 ml 07/04/19 14:02 07/05/19 05:53 Sodium Chloride Flush Syringe 10 Ml IV 10 ml PRN PRN Administration LINE FLUSH Spironolactone 12.5 mg 07/06/19 10:00 07/06/19 09:57 Aldactone PO 12.5 mg QDAY MARLENA Administration
[2019-07-07] MEDS: ZESTRIL PO SCH (09:19)
[2019-07-07] MEDS: ALDACTONE PO SCH (09:19)
[2019-07-07] MEDS: COREG PO SCH ×2 (09:20→21:58)
[2019-07-07] MEDS: ENOXAPARIN SUB-Q SCH ×2 (09:20→21:59)
[2019-07-07] MEDS: SODIUM CHLORIDE FLUSH SYRINGE 10 ML IV SCH ×2 (09:21→22:06)
--- NOTE | 2019-07-07 10:23 | Progress Note ---
Assessment and Plan Cont GDMT and IV diuresis. Pt down 7+ kg. LifeVest is in place. Will plan for coronary angiography in AM to r/o ischemic CMP. In consideration of upcoming LHC, will hold Eliquis and cont full dosage lovenox for systemic AC until following LHC. Will plan to convert back to Eliquis prior to discharge. Pt with apparently ? unprovoked PE - BLE duplex negative for DVT. Hematology is following. The patient has been seen in conjunction with Dr. Nicholas Flor who agrees with the assessment and plan of care. - Patient Problems (1) Pulmonary embolism on right Current Visit: Yes Status: Acute (2) Acute HFrEF (heart failure with reduced ejection fraction) Current Visit: Yes Status: Acute (3) Cardiomyopathy Current Visit: Yes Status: Chronic (4) Pericardial effusion Current Visit: Yes Status: Acute (5) Sinus tachycardia Current Visit: Yes Status: Acute (6) HTN (hypertension) Current Visit: Yes Status: Chronic (7) Tobacco use Current Visit: Yes Status: Chronic (8) Polysubstance abuse Current Visit: Yes Status: Chronic Subjective Date of service: 07/07/19 Principal diagnosis: PE; HF Interval history: pt resting in bed, states he is feeling a little better, BLE edema gradually improving, pt states he was able to lay flat last night. in SR/ST HR 100s on telemetry. Objective Last Vital Signs Temp 97.6 F 07/07/19 08:08 Pulse 103 H 07/07/19 08:34 Resp 18 07/07/19 08:08 BP 115/79 07/07/19 08:08 Pulse Ox 95 07/07/19 08:08 - Physical Examination General: No Apparent Distress HEENT: Positive: PERRL, Normocephaly, Mucus Membranes Moist Neck: Positive: neck supple, trachea midline Cardiac: Positive: Reg Rate and Rhythm, S1/S2 Lungs: Positive: Decreased Breath Sounds Neuro: Positive: Grossly Intact Abdomen: Negative: Tender Skin: Positive: Other (BLE blistering). Negative: Rash Musculoskeletal: No Pain Extremities: Present: +2 Edema - Labs and Meds Comprehensive Metabolic Panel 07/07/19 Range/Units 04:34 Sodium 140 (137-145) mmol/L Potassium 3.7 (3.6-5.0) mmol/L Chloride 99.4 (98-107) mmol/L Carbon Dioxide 27 (22-30) mmol/L BUN 12 (9-20) mg/dL Creatinine 0.8 (0.8-1.5) mg/dL Glucose 143 H (75-100) mg/dL Calcium 8.6 (8.4-10.2) mg/dL - Imaging and Cardiology EKG: report reviewed, image reviewed Echo: report reviewed (Echo shows EF 10-15%, abnormal diastolic function, moderate pericardial effusion with no evidence of tamponade, trace MR, RV systolic function mildly reduced, RVSP 45mmHg. ) - Telemetry EKG Rhythm: Sinus Rhythm - EKG Sinus rhythms and dysrhythmias: sinus rhythm
[2019-07-07] MEDS ORDERED: NACL 0.9% 500 ML 500 ML IV SCH (11:00)
--- NOTE | 2019-07-07 11:38 | Progress Note ---
Assessment and Plan Assessment and plan: Acute systolic Congestive heart failure Admited to telemetry, Echo, cardiology following, strict I/O, daily weight, bnp, d dimer, supplemental oxygen, pulse oximetry, chest x ray, diuresis, afterload reduction, thyroid panel, magnesium level EF 10-15%. Life vest recommended AICD to be arranged as outpatient For Cardiac cath tomorrow Acute Respiratory failure Supplemental oxygen, chest x ray, CTA chest, pulse oximetry, NIPPV as clinically indicated Obesity hypoventilation syndrome supplemental oxygen, nebulizer therapy, pulmonary toilet, NIPPV as clinically indicated. balanced diet, increased physical activity at discharge. Pulmonary embolism on right Therapeutic anticoagulation, hypercoagulabe profile, supportive care. Started on Eliquis consulted Hematology Discussed with Dr. liang Nicotine dependence smoking cessation +10min, supportive care. Polysubstance abuse Outpatient F/U care, DVT prophylaxis SCD to BLE while in bed, continue therapeutic anticoagulation. History Interval history: Chest pain shortness of breath Hospitalist Physical - Physical exam Narrative exam: Gen: Not in acute distress, lying in bed, HEENT: Normocephalic, atraumatic Neck: supple, no JVD Heart: S1 and S2 reg, no murmurs, rubs or gallop Lungs: Clear to auscultation, no rhonchi, no wheeze Abd: soft, non tender, non distended, normal BS, Ext: Bilateral lower ext edema, ulcer left leg, no clubbing, no cyanosis Neuro: Awake, alert, oriented X 3, no focal neurological signs - Constitutional Vitals: Temp Pulse Resp BP Pulse Ox 97.6 F 103 H 18 115/79 95 07/07/19 08:08 07/07/19 08:34 07/07/19 08:08 07/07/19 08:08 07/07/19 08:08 General appearance: Present: no acute distress Results - Labs CBC & Chem 7: 07/05/19 06:07 07/07/19 04:34 Labs: Laboratory Last Values WBC 7.4 K/mm3 (4.5-11.0) 07/05/19 06:07 RBC 5.15 M/mm3 (3.65-5.03) H 07/05/19 06:07 Hgb 13.8 gm/dl (11.8-15.2) 07/05/19 06:07 Hct 42.6 % (35.5-45.6) 07/05/19 06:07 MCV 83 fl (84-94) L 07/05/19 06:07 MCH 27 pg (28-32) L 07/05/19 06:07 MCHC 32 % (32-34) 07/05/19 06:07 RDW 16.5 % (13.2-15.2) H 07/05/19 06:07 Plt Count 339 K/mm3 (140-440) 07/05/19 06:07 Lymph % (Auto) 19.8 % (13.4-35.0) 07/05/19 06:07 [place] % (Auto) 8.7 % (0.0-7.3) H 07/05/19 06:07 Eos % (Auto) 2.7 % (0.0-4.3) 07/05/19 06:07 Baso % (Auto) 1.1 % (0.0-1.8) 07/05/19 06:07 Lymph # 1.5 K/mm3 (1.2-5.4) 07/05/19 06:07 [place] # 0.6 K/mm3 (0.0-0.8) 07/05/19 06:07 Eos # 0.2 K/mm3 (0.0-0.4) 07/05/19 06:07 Baso # 0.1 K/mm3 (0.0-0.1) 07/05/19 06:07 Seg Neutrophils % 67.7 % (40.0-70.0) 07/05/19 06:07 Seg Neutrophils # 5.0 K/mm3 (1.8-7.7) 07/05/19 06:07 PT 15.5 Sec. (12.2-14.9) H 07/04/19 16:44 INR 1.26 (0.87-1.13) H 07/04/19 16:44 APTT 29.8 Sec. (24.2-36.6) 07/04/19 16:44 Antithrombin III Ag 76 % (80-120) L 07/04/19 16:44 POC ABG pH 7.424 (7.35-7.45) 07/04/19 15:02 POC ABG pCO2 40.5 (35-45) 07/04/19 15:02 POC ABG pO2 128 (80-105) H 07/04/19 15:02 POC ABG HCO3 26.5 (22-26 mml/L) 07/04/19 15:02 POC ABG Total CO2 28 (23-27mmol/L) 07/04/19 15:02 POC ABG O2 Sat 99 07/04/19 15:02 POC ABG Base Excess 2 ((-2) - (+3)mmol/L) 07/04/19 15:02 FiO2 36 % 07/04/19 15:02 Sodium 140 mmol/L (137-145) 07/07/19 04:34 Potassium 3.7 mmol/L (3.6-5.0) 07/07/19 04:34 Chloride 99.4 mmol/L (98-107) 07/07/19 04:34 Carbon Dioxide 27 mmol/L (22-30) 07/07/19 04:34 Anion Gap 17 mmol/L 07/07/19 04:34 BUN 12 mg/dL (9-20) 07/07/19 04:34 Creatinine 0.8 mg/dL (0.8-1.5) 07/07/19 04:34 Estimated GFR > 60 ml/min 07/07/19 04:34 BUN/Creatinine Ratio 15 % 07/07/19 04:34 Glucose 143 mg/dL (75-100) H 07/07/19 04:34 Calcium 8.6 mg/dL (8.4-10.2) 07/07/19 04:34 Magnesium 2.30 mg/dL (1.7-2.3) 07/04/19 16:44 Total Bilirubin 0.60 mg/dL (0.1-1.2) 07/05/19 06:07 Direct Bilirubin 0.2 mg/dL (0-0.2) 07/04/19 10:37 Indirect Bilirubin 0.4 mg/dL 07/04/19 10:37 AST 15 units/L (5-40) 07/05/19 06:07 ALT 19 units/L (7-56) 07/05/19 06:07 Alkaline Phosphatase 88 units/L (35-129) 07/05/19 06:07 Troponin T < 0.010 ng/mL (0.00-0.029) 07/04/19 16:44 NT-Pro-B Natriuret Pep 2361 pg/mL (0-450) H 07/04/19 10:37 Total Protein 6.7 g/dL (6.3-8.2) 07/05/19 06:07 Albumin 3.6 g/dL (3.9-5) L 07/05/19 06:07 Albumin/Globulin Ratio 1.2 % 07/05/19 06:07 TSH 2.270 mlU/mL (0.270-4.200) 07/04/19 16:44 Free T4 1.21 ng/dL (0.76-1.46) 07/04/19 16:44 Urine Opiates Screen Presumptive negative 07/04/19 17:35 Urine Methadone Screen Presumptive negative 07/04/19 17:35 Ur Barbiturates Screen Presumptive negative 07/04/19 17:35 Ur Phencyclidine Scrn Presumptive negative 07/04/19 17:35 Ur Amphetamines Screen Presumptive positive 07/04/19 17:35 U Benzodiazepines Scrn Presumptive negative 07/04/19 17:35 Urine Cocaine Screen Presumptive negative 07/04/19 17:35 U Marijuana (THC) Screen Presumptive negative 07/04/19 17:35 Drugs of Abuse Note Disclamer 07/04/19 17:35 Active Medications - Current Medications Current Medications: Generic Name Dose Route Start Last Admin Trade Name Freq PRN Reason Stop Dose Admin Acetaminophen 650 mg 07/04/19 14:02 Tylenol PO Q4H PRN Pain MILD(1-3)/Fever >100.5/PEDROZA Carvedilol 6.25 mg 07/05/19 14:00 07/07/19 09:20 Coreg PO 6.25 mg BID MARLENA Administration Enoxaparin Sodium 100 mg 07/05/19 22:00 07/07/19 09:20 Lovenox SUB-Q 100 mg Q12HR MARLENA Administration Furosemide 40 mg 07/04/19 18:00 07/07/19 05:23 Lasix IV 40 mg 0600,1800 MARLENA Administration Hydrophilic Ointment 1 applic 07/06/19 08:00 07/06/19 11:09 Vaseline Lip Therapy TP 1 applic DIRECT PRN Administration Dry Lips Sodium Chloride 500 mls @ 50 mls/hr 07/08/19 06:00 Nacl 0.9% 500 Ml IV 07/08/19 15:59 DIRECT MARLENA Lisinopril 5 mg 07/06/19 10:00 07/07/19 09:19 Zestril PO 5 mg QDAY MARLENA Administration Metolazone 5 mg 07/07/19 17:30 Zaroxolyn PO QDAY MARLENA Ondansetron HCl 4 mg 07/04/19 14:02 Zofran IV Q8H PRN Nausea And Vomiting Sodium Chloride 10 ml 07/04/19 22:00 07/07/19 09:21 Sodium Chloride Flush Syringe 10 Ml IV 10 ml BID MARLENA Administration Sodium Chloride 10 ml 07/04/19 14:02 07/05/19 05:53 Sodium Chloride Flush Syringe 10 Ml IV 10 ml PRN PRN Administration LINE FLUSH Spironolactone 12.5 mg 07/06/19 10:00 07/07/19 09:19 Aldactone PO 12.5 mg QDAY MARLENA Administration
[2019-07-07 13:01] LABS: Protein S, Free 90 % normal (57-171); Protein S, Total 81 % normal (70-140)
[2019-07-07] MEDS: ZAROXOLYN PO SCH (17:49)
[2019-07-08] MEDS ORDERED: NACL 0.9% 500 ML 500 ML IV SCH (06:00)
[2019-07-08 06:49] LABS: Basophils # (Auto) 0.1 K/mm3 (0.0-0.1); Basophils % (Auto) 0.9 % (0.0-1.8); Eosinophils # (Auto) 0.3 K/mm3 (0.0-0.4); Eosinophils % (Auto) 3.8 % (0.0-4.3); Hematocrit 46.7 % (35.5-45.6); Hemoglobin 14.8 gm/dl (11.8-15.2); Lymphocytes # (Auto) 1.5 K/mm3 (1.2-5.4); Mean Corpuscular HGB Conc 32 % (32-34); Mean Corpuscular Volume 82 fl (84-94); Monocytes # (Auto) 0.8 K/mm3 (0.0-0.8); Platelet Count 355 K/mm3 (140-440); Red Blood Count 5.68 M/mm3 (3.65-5.03); Red Cell Distribution Width 16.5 % (13.2-15.2)
[2019-07-08] MEDS ORDERED: NACL 0.9% 500 ML 500 ML ONE (07:02)
[2019-07-08 07:08] LABS: INR 1.05 (0.87-1.13)
[2019-07-08 07:26] LABS: BUN/Creatinine Ratio 16; Blood Urea Nitrogen 11 mg/dL (9-20); Hemolysis Index 5
[2019-07-08] MEDS ORDERED: HEPARIN/NS 5000 UNIT/500ML(CATH LAB) 1,000 ML IR ONE (08:07)
[2019-07-08] MEDS: VERSED ONE ×2 (08:34→08:38)
[2019-07-08] MEDS: XYLOCAINE 2% INFILTRATI ONE ×2 (08:35→08:43)
[2019-07-08] MEDS: SUBLIMAZE ONE ×2 (08:35→08:38)
[2019-07-08] MEDS: HEPARIN 10,000 UNITS/10 ML ONE ×2 (08:36→08:44)
[2019-07-08] MEDS: CALAN ONE ×2 (08:36→08:44)
[2019-07-08] MEDS: NITROGLYCERIN SYRINGE 3 ML ONE ×2 (08:37→08:44)
--- NOTE | 2019-07-08 09:49 | Cardiac Catherization Report ---
REFERRING PHYSICIAN: Hospitalist service. INDICATION FOR PROCEDURE: The patient is a pleasant 43-year-old gentleman with a finding of severe cardiomyopathy, ejection fraction approximately 10%, here for cardiac catheterization. Risks, benefits, and alternatives explained at length prior to obtaining informed consent. PROCEDURE IN DETAIL: The patient was brought to the slabber light in a postabsorptive state, prepped and draped in sterile fashion. Theodore's test in right hand was normal. A 2 mL of 2% lidocaine used to anesthetize the right wrist. A standard 6-Thai hydrophilic sheath used to cannulate the right radial artery via modified Seldinger technique. All exchanges performed to exchange a J-tip guidewire. A JL3.5 catheter was used to engage the left main. No dampening or ventricularization. Cineangiography performed in all projections. JR4 catheter used to cross the aortic valve under fluoroscopic guidance. Left ventriculography performed in 30 [place] and 30 [place] projections via hand injections, catheter flushed. Manual pullback performed with continuous pressure monitoring. Catheter used to engage the right coronary. No dampening or ventricularization. Cineangiography performed in all projections. Next, catheter removed from the body of wire, sheath removed. Manual pressure used to achieve hemostasis. DATA: Aortic pressure is 120/80, LV pressure is 120, LVEDP of 40 mmHg. Left ventriculography reveals severe global left ventricular hypokinesis, estimated ejection fraction of 10-15%, mild to moderately dilated left ventricular chamber size as well. CORONARY ANATOMY: This is a right dominant system. Right coronary is a moderate sized vessel, courses AV groove, distally bifurcates into posterior and posterolateral branches. There is a 40-50% stenosis in the mid right coronary, MILA 3 flow is noted. Left main without significant disease, short, bifurcates to left anterior descending and left circumflex. Left circumflex, moderate sized vessel, gives off a large OM trunk. No significant disease. LAD is a moderate sized vessel, courses anterior intergroove, wraps around the apex. Mild scattered luminal irregularities, maximal narrowing of 20% in the mid segment. I directly supervised the administration of moderate sedation from 8:37 a.m. to 9 a.m. with fentanyl and Versed. There were no immediate complications noted. CONCLUSIONS: 1. [id number] nonobstructive coronary artery disease with a 40-50% mid right coronary stenosis and 20% mid LAD stenosis in his right dominant system. 2. Mild to moderately dilated left ventricular chamber size with severe global left ventricular hypokinesis, estimated ejection fraction of 10-15%. 3. Markedly elevated LVEDP. 4. No evidence of aortic stenosis. These findings are consistent with a severe dilated nonischemic cardiomyopathy, which is mild to moderately decompensated. Aggressive medical management, further diuresis. The patient has already had a LifeVest delivered. Results of the procedure were explained at length to the patient and family. All questions and concerns were addressed. Standard radial care. JOB# [id number] ROLF/NTS
--- NOTE | 2019-07-08 10:48 | Progress Note ---
Assessment and Plan Assessment and plan: Acute systolic Congestive heart failure Admited to telemetry, Echo, cardiology following, strict I/O, daily weight, bnp, d dimer, supplemental oxygen, pulse oximetry, chest x ray, diuresis, afterload reduction, thyroid panel, magnesium level EF 10-15%. Life vest recommended, obtained, at bedside AICD to be arranged as outpatient Cardiac cath done today mild to moderate non obstructive CAD Resume Eliquis 10mg po bid X 7 days , followed by Eliquis 5mg po bid Acute Respiratory failure Supplemental oxygen, chest x ray, CTA chest, pulse oximetry, NIPPV as clinically indicated Obesity hypoventilation syndrome supplemental oxygen, nebulizer therapy, pulmonary toilet, NIPPV as clinically indicated. balanced diet, increased physical activity at discharge. Pulmonary embolism on right Therapeutic anticoagulation, hypercoagulabe profile, supportive care. Started on Eliquis consulted Hematology Discussed with Dr. Lui Nicotine dependence smoking cessation +10min, supportive care. Polysubstance abuse Outpatient F/U care, DVT prophylaxis SCD to BLE while in bed, continue therapeutic anticoagulation. History Interval history: Still leg edema less shortness of breath Hospitalist Physical - Physical exam Narrative exam: Gen: Not in acute distress, lying in bed, obese HEENT: Normocephalic, atraumatic Neck: supple, no JVD Heart: S1 and S2 reg, no murmurs, rubs or gallop Lungs: Clear to auscultation, no rhonchi, no wheeze Abd: soft, non tender, non distended, normal BS, Ext: Bilateral lower ext edema, ulcer left leg, no clubbing, no cyanosis Neuro: Awake, alert, oriented X 3, no focal neurological signs - Constitutional Vitals: Temp Pulse Resp BP Pulse Ox 98 F 96 H 20 118/84 100 07/08/19 09:10 07/08/19 10:03 07/08/19 09:56 07/08/19 09:25 07/08/19 09:56 General appearance: Present: no acute distress Results - Labs CBC & Chem 7: 07/08/19 05:24 07/08/19 05:24 Labs: Laboratory Last Values WBC 7.5 K/mm3 (4.5-11.0) 07/08/19 05:24 RBC 5.68 M/mm3 (3.65-5.03) H 07/08/19 05:24 Hgb 14.8 gm/dl (11.8-15.2) 07/08/19 05:24 Hct 46.7 % (35.5-45.6) H 07/08/19 05:24 MCV 82 fl (84-94) L 07/08/19 05:24 MCH 26 pg (28-32) L 07/08/19 05:24 MCHC 32 % (32-34) 07/08/19 05:24 RDW 16.5 % (13.2-15.2) H 07/08/19 05:24 Plt Count 355 K/mm3 (140-440) 07/08/19 05:24 Lymph % (Auto) 20.0 % (13.4-35.0) 07/08/19 05:24 [place] % (Auto) 11.0 % (0.0-7.3) H 07/08/19 05:24 Eos % (Auto) 3.8 % (0.0-4.3) 07/08/19 05:24 Baso % (Auto) 0.9 % (0.0-1.8) 07/08/19 05:24 Lymph # 1.5 K/mm3 (1.2-5.4) 07/08/19 05:24 [place] # 0.8 K/mm3 (0.0-0.8) 07/08/19 05:24 Eos # 0.3 K/mm3 (0.0-0.4) 07/08/19 05:24 Baso # 0.1 K/mm3 (0.0-0.1) 07/08/19 05:24 Seg Neutrophils % 64.3 % (40.0-70.0) 07/08/19 05:24 Seg Neutrophils # 4.8 K/mm3 (1.8-7.7) 07/08/19 05:24 PT 13.6 Sec. (12.2-14.9) 07/08/19 05:24 INR 1.05 (0.87-1.13) 07/08/19 05:24 APTT 29.8 Sec. (24.2-36.6) 07/04/19 16:44 Protein C Antigen 75 % (70-140) 07/04/19 16:44 Free Protein S 90 % normal (57-171) 07/04/19 16:44 Total Protein S 81 % normal (70-140) 07/04/19 16:44 Antithrombin III Ag 76 % (80-120) L 07/04/19 16:44 POC ABG pH 7.424 (7.35-7.45) 07/04/19 15:02 POC ABG pCO2 40.5 (35-45) 07/04/19 15:02 POC ABG pO2 128 (80-105) H 07/04/19 15:02 POC ABG HCO3 26.5 (22-26 mml/L) 07/04/19 15:02 POC ABG Total CO2 28 (23-27mmol/L) 07/04/19 15:02 POC ABG O2 Sat 99 07/04/19 15:02 POC ABG Base Excess 2 ((-2) - (+3)mmol/L) 07/04/19 15:02 FiO2 36 % 07/04/19 15:02 Sodium 141 mmol/L (137-145) 07/08/19 05:24 Potassium 4.0 mmol/L (3.6-5.0) 07/08/19 05:24 Chloride 98.6 mmol/L (98-107) 07/08/19 05:24 Carbon Dioxide 28 mmol/L (22-30) 07/08/19 05:24 Anion Gap 18 mmol/L 07/08/19 05:24 BUN 11 mg/dL (9-20) 07/08/19 05:24 Creatinine 0.7 mg/dL (0.8-1.5) L 07/08/19 05:24 Estimated GFR > 60 ml/min 07/08/19 05:24 BUN/Creatinine Ratio 16 % 07/08/19 05:24 Glucose 209 mg/dL (75-100) H 07/08/19 05:24 POC Glucose 120 (70-105) H 07/08/19 06:02 Calcium 9.0 mg/dL (8.4-10.2) 07/08/19 05:24 Magnesium 2.30 mg/dL (1.7-2.3) 07/04/19 16:44 Total Bilirubin 0.60 mg/dL (0.1-1.2) 07/05/19 06:07 Direct Bilirubin 0.2 mg/dL (0-0.2) 07/04/19 10:37 Indirect Bilirubin 0.4 mg/dL 07/04/19 10:37 AST 15 units/L (5-40) 07/05/19 06:07 ALT 19 units/L (7-56) 07/05/19 06:07 Alkaline Phosphatase 88 units/L (35-129) 07/05/19 06:07 Troponin T < 0.010 ng/mL (0.00-0.029) 07/04/19 16:44 NT-Pro-B Natriuret Pep 2361 pg/mL (0-450) H 07/04/19 10:37 Total Protein 6.7 g/dL (6.3-8.2) 07/05/19 06:07 Albumin 3.6 g/dL (3.9-5) L 07/05/19 06:07 Albumin/Globulin Ratio 1.2 % 07/05/19 06:07 TSH 2.270 mlU/mL (0.270-4.200) 07/04/19 16:44 Free T4 1.21 ng/dL (0.76-1.46) 07/04/19 16:44 Urine Opiates Screen Presumptive negative 07/04/19 17:35 Urine Methadone Screen Presumptive negative 07/04/19 17:35 Ur Barbiturates Screen Presumptive negative 07/04/19 17:35 Ur Phencyclidine Scrn Presumptive negative 07/04/19 17:35 Ur Amphetamines Screen Presumptive positive 07/04/19 17:35 U Benzodiazepines Scrn Presumptive negative 07/04/19 17:35 Urine Cocaine Screen Presumptive negative 07/04/19 17:35 U Marijuana (THC) Screen Presumptive negative 07/04/19 17:35 Drugs of Abuse Note Disclamer 07/04/19 17:35 Active Medications - Current Medications Current Medications: Generic Name Dose Route Start Last Admin Trade Name Freq PRN Reason Stop Dose Admin Acetaminophen 650 mg 07/04/19 14:02 Tylenol PO Q4H PRN Pain MILD(1-3)/Fever >100.5/PEDROZA Carvedilol 6.25 mg 07/05/19 14:00 07/07/19 21:58 Coreg PO 6.25 mg BID MARLENA Administration Furosemide 40 mg 07/04/19 18:00 07/07/19 18:20 Lasix IV 40 mg 0600,1800 MARLENA Administration Hydrophilic Ointment 1 applic 07/06/19 08:00 07/06/19 11:09 Vaseline Lip Therapy TP 1 applic DIRECT PRN Administration Dry Lips Sodium Chloride 500 mls @ 50 mls/hr 07/08/19 06:00 07/08/19 07:25 Nacl 0.9% 500 Ml IV 07/08/19 15:59 50 mls/hr DIRECT MARLENA Administration Lisinopril 5 mg 07/06/19 10:00 07/07/19 09:19 Zestril PO 5 mg QDAY MARLENA Administration Metolazone 5 mg 07/07/19 17:30 07/07/19 17:49 Zaroxolyn PO 5 mg QDAY MARLENA Administration Ondansetron HCl 4 mg 07/04/19 14:02 Zofran IV Q8H PRN Nausea And Vomiting Sodium Chloride 10 ml 07/04/19 22:00 07/07/19 22:06 Sodium Chloride Flush Syringe 10 Ml IV 10 ml BID MARLENA Administration Sodium Chloride 10 ml 07/04/19 14:02 07/05/19 05:53 Sodium Chloride Flush Syringe 10 Ml IV 10 ml PRN PRN Administration LINE FLUSH Spironolactone 12.5 mg 07/06/19 10:00 07/07/19 09:19 Aldactone PO 12.5 mg QDAY MARLENA Administration
[2019-07-08] MEDS: COREG PO SCH (11:06)
[2019-07-08] MEDS: ZAROXOLYN PO SCH (11:06)
[2019-07-08] MEDS: ALDACTONE PO SCH (11:06)
[2019-07-08] MEDS: SODIUM CHLORIDE FLUSH SYRINGE 10 ML IV SCH (11:07)
[2019-07-08] MEDS: ZESTRIL PO SCH (11:10)
[2019-07-08] MEDS ORDERED: ALDACTONE PO SCH (13:56)
--- NOTE | 2019-07-08 13:57 | Progress Note ---
Assessment and Plan S/p LHC today which showed nonobstructive CAD, EF 10-15%, markedly elevated LVEDP. May resume Eliquis. Cont GDMT and titrate as tolerated. Cont IV diuresis for another 24-48hrs considering markedly elevated LVEDP on LHC. LifeVest is in place. The patient has been seen in conjunction with Dr. Nicholas Flor who agrees with the assessment and plan of care. - Patient Problems (1) Pulmonary embolism on right Current Visit: Yes Status: Acute (2) Acute HFrEF (heart failure with reduced ejection fraction) Current Visit: Yes Status: Acute (3) Cardiomyopathy Current Visit: Yes Status: Chronic (4) Nonobstructive atherosclerosis of coronary artery Current Visit: Yes Status: Chronic (5) NSVT (nonsustained ventricular tachycardia) Current Visit: Yes Status: Acute (6) Pericardial effusion Current Visit: Yes Status: Acute (7) Sinus tachycardia Current Visit: Yes Status: Acute (8) HTN (hypertension) Current Visit: Yes Status: Chronic (9) Tobacco use Current Visit: Yes Status: Chronic (10) Polysubstance abuse Current Visit: Yes Status: Chronic Subjective Date of service: 07/08/19 Principal diagnosis: PE; HF Interval history: pt for [facility] today, no current complaints, BLE edema gradually improving. in SR/ST HR 100s on telemetry. Objective Last Vital Signs Temp 98 F 07/08/19 10:30 Pulse 92 H 07/08/19 11:10 Resp 20 07/08/19 10:30 BP 126/82 07/08/19 11:10 Pulse Ox 100 07/08/19 10:30 - Physical Examination General: No Apparent Distress HEENT: Positive: PERRL, Normocephaly, Mucus Membranes Moist Neck: Positive: neck supple, trachea midline Cardiac: Positive: Regular Rhythm, S1/S2 Lungs: Positive: Decreased Breath Sounds Neuro: Positive: Grossly Intact Abdomen: Negative: Tender Skin: Positive: Other (BLE blistering). Negative: Rash Musculoskeletal: No Pain Extremities: Present: +2 Edema - Labs and Meds Coagulation 07/08/19 Range/Units 05:24 PT 13.6 (12.2-14.9) Sec. INR 1.05 (0.87-1.13) CBC 07/08/19 Range/Units 05:24 WBC 7.5 (4.5-11.0) K/mm3 RBC 5.68 H (3.65-5.03) M/mm3 Hgb 14.8 (11.8-15.2) gm/dl Hct 46.7 H (35.5-45.6) % Plt Count 355 (140-440) K/mm3 Lymph # 1.5 (1.2-5.4) K/mm3 [place] # 0.8 (0.0-0.8) K/mm3 Eos # 0.3 (0.0-0.4) K/mm3 Baso # 0.1 (0.0-0.1) K/mm3 Comprehensive Metabolic Panel 07/08/19 Range/Units 05:24 Sodium 141 (137-145) mmol/L Potassium 4.0 (3.6-5.0) mmol/L Chloride 98.6 (98-107) mmol/L Carbon Dioxide 28 (22-30) mmol/L BUN 11 (9-20) mg/dL Creatinine 0.7 L (0.8-1.5) mg/dL Glucose 209 H (75-100) mg/dL Calcium 9.0 (8.4-10.2) mg/dL - Imaging and Cardiology EKG: report reviewed, image reviewed Echo: report reviewed (Echo shows EF 10-15%, abnormal diastolic function, moderate pericardial effusion with no evidence of tamponade, trace MR, RV systolic function mildly reduced, RVSP 45mmHg. ) - Telemetry EKG Rhythm: Sinus Rhythm - EKG Sinus rhythms and dysrhythmias: sinus rhythm
[2019-07-08] MEDS: TYLENOL PO PRN (15:53)
[2019-07-08] MEDS: ELIQUIS PO SCH (17:34)
[2019-07-08] MEDS: LASIX IV SCH ×2 (17:35→17:41)
[2019-07-09] MEDS: LASIX IV SCH ×3 (06:58→17:35)
[2019-07-09] MEDS: COREG PO SCH ×3 (07:35→21:39)
[2019-07-09] MEDS: ELIQUIS PO SCH ×3 (07:36→21:39)
[2019-07-09] MEDS: SODIUM CHLORIDE FLUSH SYRINGE 10 ML IV SCH ×3 (07:36→21:48)
--- NOTE | 2019-07-09 09:56 | Progress Note ---
Assessment and Plan Acute on chronic HFrEF 10-15% Nonischemic cardiomyopathy Small RML pulmonary embolus Essential hypertension Polysubstance abuse Homeless Continue strict I/O Continue IV diuresis Continue Acute PE therapy Discharge planning/Likely discharge in AM (Follow up with Dr. NIKOLAY Flor as outpatient [phone]) LifeVest in place Subjective Date of service: 07/09/19 Principal diagnosis: PE; HF Interval history: Patient sitting up in bed. He denies any chest pain. He reports that he is able to lie flat while sleeping. Denies any shortness of breath. Attention Objective Vital Signs Temp Pulse Resp Resp BP BP Pulse Ox 07/09/19 04:50 98.0 F 105 H 20 105/77 98 07/09/19 02:00 20 07/08/19 23:35 98.1 F 104 H 20 110/73 97 07/08/19 22:18 91/60 07/08/19 22:00 98 H 07/08/19 19:52 98.0 F 104 H 20 90/56 96 07/08/19 17:04 98.5 F 99 H 18 115/76 99 07/08/19 16:53 20 07/08/19 15:53 20 07/08/19 15:42 98.5 F 97 H 18 115/76 96 07/08/19 14:00 20 07/08/19 13:00 98 F 94 H 18 134/80 99 07/08/19 12:30 90 20 140/72 100 07/08/19 11:30 98.4 F 94 H 20 136/70 99 07/08/19 11:10 92 H 126/82 07/08/19 11:06 92 H 126/82 07/08/19 11:00 88 18 126/72 100 07/08/19 10:30 98 F 92 H 20 122/82 100 07/08/19 10:03 96 H 07/08/19 09:56 20 100 07/08/19 09:55 90 18 120/80 100 - Physical Examination General: No Apparent Distress HEENT: Positive: PERRL, Normocephaly, Mucus Membranes Moist Neck: Positive: neck supple, trachea midline Cardiac: Positive: Reg Rate and Rhythm Lungs: Positive: clear to auscultation, Normal Breath Sounds Neuro: Positive: Grossly Intact Abdomen: Negative: Tender Skin: Positive: Other (BLE blistering). Negative: Rash Musculoskeletal: No Pain Extremities: Present: +1 Edema - Imaging and Cardiology EKG: report reviewed, image reviewed Echo: report reviewed (Echo shows EF 10-15%, abnormal diastolic function, moderate pericardial effusion with no evidence of tamponade, trace MR, RV systolic function mildly reduced, RVSP 45mmHg. ) - EKG Sinus rhythms and dysrhythmias: sinus rhythm
[2019-07-09] MEDS: ZESTRIL PO SCH (10:20)
[2019-07-09] MEDS: ZAROXOLYN PO SCH (10:21)
--- NOTE | 2019-07-09 11:51 | Progress Note ---
Assessment and Plan Assessment and plan: Patient is 43 YO Male with Obesity, Polysubstance Abuse presented to ED for evaluation. Pt states that he has experienced shortness of breath over the 2 weeks, with progressively worsening symptoms over the past 3 days. Pt also reports "chest tightness" and "feels like I cant catch my breath". Pt acknowl edges decreased exercise tolerance, chest discomfort with deep breathing, Orthopnea/PND, and subjective weight gain over the past 1 week. Pt transported to [facility] via private vehicle. Pt seen and evaluated in ED and found to have symptoms consistent with acute CHF, Acute Respiratory Failure, Obesity Hy poventilation, as well as RML Pulmonary Embolism. Pt initiated on CHF protocol in ED as well as therapeutic anticoagulation. Cardiology consulted in ED. he was admitted. Echo revealed EF 10-15%. 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 Lifevest was recommended, obtained, at bedside. He still has fluid overload, leg edema on Lasix iv. Needs to continue anticoagulation for Pulm embolism on discharge. Acute systolic Congestive heart failure Admited to telemetry, Echo, cardiology following, strict I/O, daily weight, bnp, d dimer, supplemental oxygen, pulse oximetry, chest x ray, diuresis, afterload reduction, thyroid panel, magnesium level EF 10-15%. Life vest recommended, obtained, at bedside AICD to be arranged as outpatient Cardiac cath done today mild to moderate non obstructive CAD Resume Eliquis 10mg po bid X 7 days , followed by Eliquis 5mg po bid Acute Respiratory failure Supplemental oxygen, NIPPV as clinically indicated Obesity hypoventilation syndrome supplemental oxygen, nebulizer therapy, pulmonary toilet, NIPPV as clinically indicated. balanced diet, increased physical activity at discharge. Pulmonary embolism on right Therapeutic anticoagulation, hypercoagulabe profile, supportive care. Started on Eliquis consulted Hematology Discussed with Dr. Lui Nicotine dependence smoking cessation +10min, supportive care. Polysubstance abuse Outpatient F/U care, DVT prophylaxis SCD to BLE while in bed, continue therapeutic anticoagulation. Hopefully dc home in few days with life vest. History Interval history: Still leg edema less shortness of breath Hospitalist Physical - Physical exam Narrative exam: Gen: Not in acute distress, lying in bed, obese HEENT: Normocephalic, atraumatic Neck: supple, no JVD Heart: S1 and S2 reg, no murmurs, rubs or gallop Lungs: Clear to auscultation, no rhonchi, no wheeze Abd: soft, non tender, non distended, normal BS, Ext: Bilateral lower ext edema, ulcer left leg, no clubbing, no cyanosis Neuro: Awake, alert, oriented X 3, no focal neurological signs - Constitutional Vitals: Temp Pulse Resp BP Pulse Ox 98.0 F 105 H 20 105/77 98 07/09/19 04:50 07/09/19 04:50 07/09/19 04:50 07/09/19 04:50 07/09/19 04:50 General appearance: Present: no acute distress Results - Labs CBC & Chem 7: 07/08/19 05:24 07/08/19 05:24 Labs: Laboratory Last Values WBC 7.5 K/mm3 (4.5-11.0) 07/08/19 05:24 RBC 5.68 M/mm3 (3.65-5.03) H 07/08/19 05:24 Hgb 14.8 gm/dl (11.8-15.2) 07/08/19 05:24 Hct 46.7 % (35.5-45.6) H 07/08/19 05:24 MCV 82 fl (84-94) L 07/08/19 05:24 MCH 26 pg (28-32) L 07/08/19 05:24 MCHC 32 % (32-34) 07/08/19 05:24 RDW 16.5 % (13.2-15.2) H 07/08/19 05:24 Plt Count 355 K/mm3 (140-440) 07/08/19 05:24 Lymph % (Auto) 20.0 % (13.4-35.0) 07/08/19 05:24 [place] % (Auto) 11.0 % (0.0-7.3) H 07/08/19 05:24 Eos % (Auto) 3.8 % (0.0-4.3) 07/08/19 05:24 Baso % (Auto) 0.9 % (0.0-1.8) 07/08/19 05:24 Lymph # 1.5 K/mm3 (1.2-5.4) 07/08/19 05:24 [place] # 0.8 K/mm3 (0.0-0.8) 07/08/19 05:24 Eos # 0.3 K/mm3 (0.0-0.4) 07/08/19 05:24 Baso # 0.1 K/mm3 (0.0-0.1) 07/08/19 05:24 Seg Neutrophils % 64.3 % (40.0-70.0) 07/08/19 05:24 Seg Neutrophils # 4.8 K/mm3 (1.8-7.7) 07/08/19 05:24 PT 13.6 Sec. (12.2-14.9) 07/08/19 05:24 INR 1.05 (0.87-1.13) 07/08/19 05:24 APTT 29.8 Sec. (24.2-36.6) 07/04/19 16:44 Protein C Antigen 75 % (70-140) 07/04/19 16:44 Free Protein S 90 % normal (57-171) 07/04/19 16:44 Total Protein S 81 % normal (70-140) 07/04/19 16:44 Antithrombin III Ag 76 % (80-120) L 07/04/19 16:44 POC ABG pH 7.424 (7.35-7.45) 07/04/19 15:02 POC ABG pCO2 40.5 (35-45) 07/04/19 15:02 POC ABG pO2 128 (80-105) H 07/04/19 15:02 POC ABG HCO3 26.5 (22-26 mml/L) 07/04/19 15:02 POC ABG Total CO2 28 (23-27mmol/L) 07/04/19 15:02 POC ABG O2 Sat 99 07/04/19 15:02 POC ABG Base Excess 2 ((-2) - (+3)mmol/L) 07/04/19 15:02 FiO2 36 % 07/04/19 15:02 Sodium 141 mmol/L (137-145) 07/08/19 05:24 Potassium 4.0 mmol/L (3.6-5.0) 07/08/19 05:24 Chloride 98.6 mmol/L (98-107) 07/08/19 05:24 Carbon Dioxide 28 mmol/L (22-30) 07/08/19 05:24 Anion Gap 18 mmol/L 07/08/19 05:24 BUN 11 mg/dL (9-20) 07/08/19 05:24 Creatinine 0.7 mg/dL (0.8-1.5) L 07/08/19 05:24 Estimated GFR > 60 ml/min 07/08/19 05:24 BUN/Creatinine Ratio 16 % 07/08/19 05:24 Glucose 209 mg/dL (75-100) H 07/08/19 05:24 POC Glucose 181 (70-105) H 07/08/19 15:49 Calcium 9.0 mg/dL (8.4-10.2) 07/08/19 05:24 Magnesium 2.30 mg/dL (1.7-2.3) 07/04/19 16:44 Total Bilirubin 0.60 mg/dL (0.1-1.2) 07/05/19 06:07 Direct Bilirubin 0.2 mg/dL (0-0.2) 07/04/19 10:37 Indirect Bilirubin 0.4 mg/dL 07/04/19 10:37 AST 15 units/L (5-40) 07/05/19 06:07 ALT 19 units/L (7-56) 07/05/19 06:07 Alkaline Phosphatase 88 units/L (35-129) 07/05/19 06:07 Troponin T < 0.010 ng/mL (0.00-0.029) 07/04/19 16:44 NT-Pro-B Natriuret Pep 2361 pg/mL (0-450) H 07/04/19 10:37 Total Protein 6.7 g/dL (6.3-8.2) 07/05/19 06:07 Albumin 3.6 g/dL (3.9-5) L 07/05/19 06:07 Albumin/Globulin Ratio 1.2 % 07/05/19 06:07 TSH 2.270 mlU/mL (0.270-4.200) 07/04/19 16:44 Free T4 1.21 ng/dL (0.76-1.46) 07/04/19 16:44 Urine Opiates Screen Presumptive negative 07/04/19 17:35 Urine Methadone Screen Presumptive negative 07/04/19 17:35 Ur Barbiturates Screen Presumptive negative 07/04/19 17:35 Ur Phencyclidine Scrn Presumptive negative 07/04/19 17:35 Ur Amphetamines Screen Presumptive positive 07/04/19 17:35 U Benzodiazepines Scrn Presumptive negative 07/04/19 17:35 Urine Cocaine Screen Presumptive negative 07/04/19 17:35 U Marijuana (THC) Screen Presumptive negative 07/04/19 17:35 Drugs of Abuse Note Disclamer 07/04/19 17:35 Active Medications - Current Medications Current Medications: Generic Name Dose Route Start Last Admin Trade Name Freq PRN Reason Stop Dose Admin Acetaminophen 650 mg 07/04/19 14:02 07/08/19 15:53 Tylenol PO 650 mg Q4H PRN Administration Pain MILD(1-3)/Fever >100.5/PEDROZA Apixaban 10 mg 07/08/19 16:00 07/09/19 10:21 Eliquis PO 07/15/19 15:59 10 mg Q12HR MARLENA Administration Protocol Carvedilol 6.25 mg 07/05/19 14:00 07/09/19 10:21 Coreg PO 6.25 mg BID MARLENA Administration Furosemide 40 mg 07/04/19 18:00 07/09/19 06:58 Lasix IV 40 mg 0600,1800 MARLENA Administration Hydrophilic Ointment 1 applic 07/06/19 08:00 07/06/19 11:09 Vaseline Lip Therapy TP 1 applic DIRECT PRN Administration Dry Lips Lisinopril 5 mg 07/06/19 10:00 07/09/19 10:20 Zestril PO 5 mg QDAY MARLENA Administration Metolazone 5 mg 07/07/19 17:30 07/09/19 10:21 Zaroxolyn PO 5 mg QDAY MARLENA Administration Ondansetron HCl 4 mg 07/04/19 14:02 Zofran IV Q8H PRN Nausea And Vomiting Sodium Chloride 10 ml 07/04/19 22:00 07/09/19 10:21 Sodium Chloride Flush Syringe 10 Ml IV 10 ml BID MARLENA Administration Sodium Chloride 10 ml 07/04/19 14:02 07/05/19 05:53 Sodium Chloride Flush Syringe 10 Ml IV 10 ml PRN PRN Administration LINE FLUSH Spironolactone 25 mg 07/08/19 13:56 07/09/19 10:20 Aldactone PO 25 mg QDAY MARLENA Administration
--- NOTE | 2019-07-09 15:12 | Hem/Onc Progress Note ---
Assessment and Plan 1. Right middle lobe pulmonary embolism. 2. Radiological congestive heart failure. 3. The patient was on Lovenox 100 mg subcu q. 12 hours. I had discussed with the patient regarding anticoagulation, warfarin versus Eliquis versus Xarelto. The patient would need at least 3-6 months of anticoagulation. He is self-pay. He has option of going to [facility] for INR management. He can also come to my clinic for followup. I discussed with him regarding quitting smoking as this may have a role. 4. Advised to lose weight. 5. Leg Doppler is negative. 6. Radiology mentioned congestive heart failure, was seen by the Cardiology team. s/p cardiac procedure OP follow up an option for anticoagulation - Patient Problems (1) Pulmonary embolism Status: Acute Qualifiers: Pulmonary embolism type: single subsegmental (without acute cor pulmonale) Qualified Code(s): I26.93 - Single subsegmental pulmonary embolism without acute cor pulmonale Subjective Date of service: 07/09/19 Principal diagnosis: PE Interval history: s/p cardiac Ix Objective - Exam Narrative Exam: Pain - none now General appearance - awake Performance status limited self care Eyes - no icterus ENT - no thrush LNs cervical not palpable Neck - no LN Respiratory Normal Breath sounds - CTA anteriorly CVS S1 S2 + Extremities no calf tenderness General GI Soft Rectal deferred male - deferred Skin warm Musculoskeletal moves limbs neuro - awake - Constitutional Vitals: Last Vital Signs Temp 98.0 F 07/09/19 04:50 Pulse 101 H 07/09/19 12:00 Resp 20 07/09/19 04:50 BP 105/77 07/09/19 04:50 Pulse Ox 98 07/09/19 04:50 - Labs Lab Results: Laboratory Results - last 24 hr 07/08/19 15:49 POC Glucose 181 H Medications & Allergies - Medications Allergies/Adverse Reactions: Allergies No Known Allergies Allergy (Verified 07/04/19 10:35) Home Medications: Home Medications Medication Instructions Recorded Confirmed Last Taken Type No Known Home Medications [No 07/04/19 07/04/19 Unknown History Reported Home Medications] Active Medications: Generic Name Dose Route Start Last Admin Trade Name Freq PRN Reason Stop Dose Admin Acetaminophen 650 mg 07/04/19 14:02 07/08/19 15:53 Tylenol PO 650 mg Q4H PRN Administration Pain MILD(1-3)/Fever >100.5/PEDROZA Apixaban 10 mg 07/08/19 16:00 07/09/19 10:21 Eliquis PO 07/15/19 15:59 10 mg Q12HR MARLENA Administration Protocol Carvedilol 6.25 mg 07/05/19 14:00 07/09/19 10:21 Coreg PO 6.25 mg BID MARLENA Administration Furosemide 40 mg 07/04/19 18:00 07/09/19 06:58 Lasix IV 40 mg 0600,1800 MARLENA Administration Hydrophilic Ointment 1 applic 07/06/19 08:00 07/06/19 11:09 Vaseline Lip Therapy TP 1 applic DIRECT PRN Administration Dry Lips Lisinopril 5 mg 07/06/19 10:00 07/09/19 10:20 Zestril PO 5 mg QDAY MARLENA Administration Metolazone 5 mg 07/07/19 17:30 07/09/19 10:21 Zaroxolyn PO 5 mg QDAY MARLENA Administration Ondansetron HCl 4 mg 07/04/19 14:02 Zofran IV Q8H PRN Nausea And Vomiting Sodium Chloride 10 ml 07/04/19 22:00 07/09/19 10:21 Sodium Chloride Flush Syringe 10 Ml IV 10 ml BID MARLENA Administration Sodium Chloride 10 ml 07/04/19 14:02 07/05/19 05:53 Sodium Chloride Flush Syringe 10 Ml IV 10 ml PRN PRN Administration LINE FLUSH Spironolactone 25 mg 07/08/19 13:56 07/09/19 10:20 Aldactone PO 25 mg QDAY MARLENA Administration
[2019-07-09] MEDS: TYLENOL PO PRN (21:46)
[2019-07-10 05:01] VITALS: BP 119/75
[2019-07-10] MEDS: LASIX IV SCH (05:45)
[2019-07-10] MEDS: TYLENOL PO PRN (05:52)
[2019-07-10 07:44] LABS: BUN/Creatinine Ratio 26; Blood Urea Nitrogen 23 mg/dL (9-20); Calcium 9.1 mg/dL (8.4-10.2); Hemolysis Index 18
[2019-07-11] MEDS ORDERED: ELIQUIS PO SCH (10:00)
== END 2019-07-10 09:58 | disposition left against medical advice (07) | DRG 286 ==
LOC: ED 09:24 → 4A 14:02
PROVIDERS: ADMIT Internal Medicine; ATTEND Family Medicine
PROC: 4A033R1 Measurement of Arterial Saturation, Peripheral, Percutaneous Approach (ICD-10-PCS; 2019-07-04)
PROC: 5A09357 Assistance with Respiratory Ventilation, Less than 24 Consecutive Hours, Continuous Positive Airway Pressure (ICD-10-PCS; 2019-07-05)
PROC: 5A09357 Assistance with Respiratory Ventilation, Less than 24 Consecutive Hours, Continuous Positive Airway Pressure (ICD-10-PCS; 2019-07-06)
PROC: 5A09357 Assistance with Respiratory Ventilation, Less than 24 Consecutive Hours, Continuous Positive Airway Pressure (ICD-10-PCS; 2019-07-07)
PROC: 4A023N7 Measurement of Cardiac Sampling and Pressure, Left Heart, Percutaneous Approach (ICD-10-PCS; principal; 2019-07-08)
PROC: B2111ZZ Fluoroscopy of Multiple Coronary Arteries using Low Osmolar Contrast (ICD-10-PCS; 2019-07-08)
PROC: B2151ZZ Fluoroscopy of Left Heart using Low Osmolar Contrast (ICD-10-PCS; 2019-07-08)
PROC: 5A09357 Assistance with Respiratory Ventilation, Less than 24 Consecutive Hours, Continuous Positive Airway Pressure (ICD-10-PCS; 2019-07-08)
DX: I11.0 Hypertensive heart disease with heart failure (principal); I26.93 Single subsegmental thrombotic pulmonary embolism without acute cor pulmonale; J96.20 Acute and chronic respiratory failure, unspecified whether with hypoxia or hypercapnia; E66.2 Morbid (severe) obesity with alveolar hypoventilation; F17.203 Nicotine dependence unspecified, with withdrawal; I31.3 Pericardial effusion (noninflammatory); I47.2 Ventricular tachycardia; I50.23 Acute on chronic systolic (congestive) heart failure; I42.9 Cardiomyopathy, unspecified; E11.9 Type 2 diabetes mellitus without complications; F12.10 Cannabis abuse, uncomplicated; F15.10 Other stimulant abuse, uncomplicated; I25.10 Atherosclerotic heart disease of native coronary artery without angina pectoris; Z68.35 Body mass index [BMI] 35.0-35.9, adult; Z71.3 Dietary counseling and surveillance; Z71.51 Drug abuse counseling and surveillance of drug abuser; Z71.6 Tobacco abuse counseling; Z59.0 Homelessness; Z53.29 Procedure and treatment not carried out because of patient's decision for other reasons; Z79.84 Long term (current) use of oral hypoglycemic drugs
CPT/HCPCS: 36415; 36600; 71045; 71275; 80048; 80053; 80076; 80307; 82803; 82962; 83735; 83880; 84439; 84443; 84484; 85025; 85220; 85301; 85305; 85610; 85730; 90686; 93005; 93010; 93306; 93458; 93970; 94660; 94760; 96365; G0378; C1894; J1644; J1650; J1940; J2250; J3010; J7040; Q9967